=== PATIENT | male | born 1960 | race Caucasian/White ===

== ENCOUNTER 2017-09-04 11:21 | Inpatient (IN) | payer OTHER ==
[~2017-09-04] VITALS: Ht 180.3 cm; Wt 103.3 kg
[2017-09-04] VITALS (18 sets, daily range): BP systolic 140–202; BP diastolic 89–106; PULSE 70–98; RESP 16–19; TEMP 98.3–98.6; O2SAT 96–100
[2017-09-04] MEDS ORDERED: AMLO5 PO (11:42)
[2017-09-04] MEDS ORDERED: ASPI-516 CHEW (11:42)
[2017-09-04] MEDS ORDERED: CHOLESTEROL MED (11:42)
[2017-09-04] MEDS ORDERED: ASPIRIN 81 MG CHEW TAB CHEW ONE (12:00)
--- NOTE | 2017-09-04 12:06 | PD ---
HPI Chief Complaint: Chest Pain Time Seen by Provider: 11:49 Travel History International Travel<30 days: Yes Contact w/Intl Traveler<30days: Yes Name of Country Traveled to: [place] Traveled to known affect area: No History of Present Illness HPI 57-year-old male complains of chest pain. Patient states that the pain started about 5 days ago. Patient states that he has bilateral axilla aching pain with radiation to the back into the neck area. Patient denies any nausea vomiting diaphoresis. Patient denies palpitation. Patient denies diaphoresis. Patient denies history of CAD. Patient states that the pain occasionally worse with lying down or walking. Patient states that the pain has been intermittent for the past 5 days. Patient has history hypertension, hyperlipidemia. Patient denies history diabetes. Patient is a smoker. Patient has family history heart disease. Patient on aspirin 81 mg daily. Patient denies any chest pain now. PFSH Past Medical History High Cholesterol: Yes Hypertension: Yes Tetanus Vaccination: > 5 Years Influenza Vaccination: No Past Surgical History Other Surgery: Yes (NASAL TUMER REMOVED) Social History Alcohol Use: Yes (RARE) Tobacco Use: Yes (1/2 PPD) Substance Use: No Allergies-Medications (Allergen,Severity, Reaction): Coded Allergies: No Known Allergies (Unverified , 09/04/17) Reported Meds & Prescriptions Reported Meds & Active Scripts Active Reported [Cholesterol Med] Norvasc (Amlodipine Besylate) 5 Mg Tab 5 Mg PO DAILY Aspirin 81 Mg Chew 81 Mg CHEW DAILY Review of Systems General / Constitutional: No: Fever Eyes: No: Visual changes HENT: No: Headaches Cardiovascular: Positive: Chest Pain or Discomfort Respiratory: No: Shortness of Breath Gastrointestinal: No: Abdominal Pain Genitourinary: No: Dysuria Musculoskeletal: No: Pain Skin: No Rash Neurologic: No: Weakness Psychiatric: No: Depression Endocrine: No: Polydipsia Hematologic/Lymphatic: No: Easy Bruising Physical Exam Narrative GENERAL: Well-nourished, well-developed patient. SKIN: Focused skin assessment warm/dry. HEAD: Normocephalic. EYES: No scleral icterus. No injection or drainage. NECK: Supple, trachea midline. No JVD or lymphadenopathy. CARDIOVASCULAR: Regular rate and rhythm without murmurs, gallops, or rubs. RESPIRATORY: Breath sounds equal bilaterally. No accessory muscle use. GASTROINTESTINAL: Abdomen soft, non-tender, nondistended. MUSCULOSKELETAL: No cyanosis, or edema. BACK: Nontender without obvious deformity. No CVA tenderness. Neurologic exam normal. Data Data Last Documented VS Vital Signs Date Time Temp Pulse Resp B/P (MAP) Pulse Ox O2 Delivery O2 Flow Rate FiO2 09/04/17 12:56 93 16 201/106 (137) 100 Room Air 09/04/17 11:26 98.3 Orders Orders Electrocardiogram (09/04/17 11:58) Complete Blood Count With Diff (09/04/17 11:58) Comprehensive Metabolic Panel (09/04/17 11:58) Creatine Kinase (Cpk) (09/04/17 11:58) Troponin I (09/04/17 11:58) Prothrombin Time / Inr (Pt) (09/04/17 11:58) Act Partial Throm Time (Ptt) (09/04/17 11:58) Chest, Single Ap (09/04/17 11:58) Iv Access Insert/Monitor (09/04/17 11:58) Ecg Monitoring (09/04/17 11:58) Oximetry (09/04/17 11:58) Aspirin Chew (Aspirin Chew) (09/04/17 12:00) CKMB (09/04/17 12:05) CKMB% (09/04/17 12:05) Nitroglycerin 2% Oint (Nitroglycerin 2% (09/04/17 13:00) Heparin Inj (Heparin Inj) (09/04/17 13:00) Heparin-D5w 25,000 U/250 Ml (Heparin-D5w (09/04/17 13:00) Admit Order (Ed Use Only) (09/04/17 13:00) Consult Cardiology (09/04/17 ) Labs Laboratory Tests Test 09/04/17 12:05 White Blood Count 7.3 TH/MM3 Red Blood Count 4.95 MIL/MM3 Hemoglobin 15.5 GM/DL Hematocrit 45.8 % Mean Corpuscular Volume 92.6 FL Mean Corpuscular Hemoglobin 31.3 PG Mean Corpuscular Hemoglobin Concent 33.8 % Red Cell Distribution Width 12.1 % Platelet Count 148 TH/MM3 Mean Platelet Volume 8.8 FL Neutrophils (%) (Auto) 69.2 % Lymphocytes (%) (Auto) 18.4 % Monocytes (%) (Auto) 9.0 % Eosinophils (%) (Auto) 2.5 % Basophils (%) (Auto) 0.9 % Neutrophils # (Auto) 5.0 TH/MM3 Lymphocytes # (Auto) 1.3 TH/MM3 Monocytes # (Auto) 0.7 TH/MM3 Eosinophils # (Auto) 0.2 TH/MM3 Basophils # (Auto) 0.1 TH/MM3 CBC Comment DIFF FINAL Differential Comment Prothrombin Time 9.9 SEC Prothromb Time International Ratio 1.0 RATIO Activated Partial Thromboplast Time 25.2 SEC Blood Urea Nitrogen 12 MG/DL Creatinine 0.84 MG/DL Random Glucose 130 MG/DL Total Protein 7.7 GM/DL Albumin 4.0 GM/DL Calcium Level 8.6 MG/DL Aspartate Amino Transf (AST/SGOT) 61 U/L Alanine Aminotransferase (ALT/SGPT) 37 U/L Total Bilirubin 0.5 MG/DL Sodium Level 139 MEQ/L Potassium Level 3.8 MEQ/L Chloride Level 105 MEQ/L Carbon Dioxide Level 24.2 MEQ/L Anion Gap 10 MEQ/L Estimat Glomerular Filtration Rate 94 ML/MIN Total Creatine Kinase 491 U/L Creatine Kinase MB 44.2 NG/ML Creatine Kinase MB % 9.0 % Troponin I 2.50 NG/ML [facility] Medical Decision Making Medical Screen Exam Complete: Yes Emergency Medical Condition: Yes Interpretation(s) EKG shows sinus tachycardia at rate 114. T-wave inversion in V1 and V2. Otherwise nonspecific ST-T wave change. Last Impressions Chest X-Ray 09/04/17 1158 Signed Impressions: Service Date/Time: Monday, September 04, 2017 12:10 - CONCLUSION: No acute disease. Bilateral moderate a.c. joint degenerative change. Johana Mcmullen MD 12:56 PM. CBC within normal limit. CK-MB 9%. Troponin 2.5. Differential Diagnosis Differential diagnosis including musculoskeletal, angina, CT, PE, pneumothorax. Narrative Course 57-year-old male with bilateral axilla pain with radiation to back and to the neck. Aspirin 162 mg by mouth given now. Nitro paste 1 inch on chest wall. Heparin bolus and drip started. I spoke with production cost estimator on-call, Dr. Schneider. Agreed with the plan. Patient will be admitted to the [facility] at the [facility]. Diagnosis Primary Impression: NSTEMI (non-ST elevated myocardial infarction) Admitting Information Admitting Physician Requests: Admit Jaden Britton MD Sep 04, 2017 12:06
[2017-09-04 12:15] LABS: BASOPHIL # 0.1 TH/MM3 (0-0.2); BASOPHIL % 0.9 % (0.0-2.0); EOSINOPHIL # 0.2 TH/MM3 (0-0.4); EOSINOPHIL % 2.5 % (0.0-4.0); HEMATOCRIT 45.8 % (39.0-51.0); HEMOGLOBIN 15.5 GM/DL (13.0-17.0); LYMPH % 18.4 % (9.0-44.0); LYMPHOCYTE # 1.3 TH/MM3 (1.0-4.8); MEAN CELL VOLUME 92.6 FL (80.0-100.0); MEAN CORPUSCULAR HEMOGLOBIN 31.3 PG (27.0-34.0); MEAN CORPUSCULAR HGB CONC 33.8 % (32.0-36.0); MEAN PLATELET VOLUME 8.8 FL (7.0-11.0); MONOCYTE # 0.7 TH/MM3 (0-0.9); NEUT % 69.2 % (16.0-70.0); PLATELET COUNT 148 TH/MM3 (150-450); RED BLOOD COUNT 4.95 MIL/MM3 (4.50-5.90); RED CELL DISTRIBUTION WIDTH 12.1 % (11.6-17.2); WHITE BLOOD COUNT 7.3 TH/MM3 (4.0-11.0)
[2017-09-04 12:22] LABS: CHLORIDE 105 MEQ/L (98-107); SODIUM (NA) 139 MEQ/L (136-145)
[2017-09-04 12:25] LABS: CALCIUM 8.6 MG/DL (8.5-10.1)
[2017-09-04 12:26] LABS: BICARBONATE 24.2 MEQ/L (21.0-32.0); BLOOD UREA NITROGEN 12 MG/DL (7-18); GLUCOSE,RANDOM 130 MG/DL (74-106)
--- NOTE | 2017-09-04 12:26 | RADRPT ---
EXAM DATE/TIME: 09/04/2017 12:10 [place] COMPARISON: No previous studies available for comparison. INDICATIONS : Off and on pain thru out chest and bilateral shoulders , no known injury MEDICAL HISTORY : None. SURGICAL HISTORY : None. ENCOUNTER: Initial ACUITY: 4 - 6 days PAIN SCORE: 8/10 LOCATION: Bilateral chest FINDINGS: A single view of the chest demonstrates the lungs to be symmetrically aerated without evidence of mas s, infiltrate or effusion. The cardiomediastinal contours are unremarkable. Bilateral moderate degen erative change within the a.c. joints. CONCLUSION: No acute disease. Bilateral moderate a.c. joint degenerative change. Johana Mcmullen MD on September 04, 2017 at 12:22 Board Certified Radiologist. This report was verified electronically.
[2017-09-04 12:27] LABS: PROTHROMBIN TIME - PATIENT 9.9 SEC (9.8-11.6)
[2017-09-04 12:29] LABS: ALT (GPT) 37 U/L (12-78); AST (GOT) 61 U/L (15-37); CREATININE 0.84 MG/DL (0.60-1.30); GLOMERULAR FILTRATION RATE 94 ML/MIN (>89)
[2017-09-04 12:30] LABS: TOTAL BILIRUBIN ADULT 0.5 MG/DL (0.2-1.0); TOTAL PROTEIN 7.7 GM/DL (6.4-8.2)
[2017-09-04 12:32] LABS: ALKALINE PHOSPHATASE 73 U/L (45-117)
[2017-09-04] MEDS ORDERED: NITROGLYCERIN 2% OINT 1 GM PACKET TOPICAL ONE (13:00)
[2017-09-04] MEDS ORDERED: HEPARIN SODIUM - IV 10,000 UNITS/10 ML VIAL IV ONE (13:00)
[2017-09-04] MEDS: HEPARIN-D5W 25,000 U/250 ML 250 ML IV PRN (13:18)
--- NOTE | 2017-09-04 14:11 | HHI.HP ---
[facility]Staff Admission Diagnosis NSTEMI Diagnoses: Travel History International Travel<30 Days: Yes Contact w/Intl Traveler <30 Da: Yes Name of Country Traveled to: [place] Traveled to Known Affected Are: No History of Present Illness 57-year-old white male being admitted for an NSTEMI. Patient was in his usual state of health until about 5 days ago when he began experiencing a gradual onset of diffuse bilateral chest pain that was aching in nature. Pain was intermittent and did not respond to Tylenol nor Advil. Patient says that during the day the pain would, and self resolve but oddly enough at night when he would lay down and would come back stronger. Due to the persistence of his symptoms he decided come to the emergency department. Denies any nausea vomiting or lightheadedness fevers or chills. He thinks his left foot is showing very trace edema. Patient's past medical history is remarkable for hypertension which she takes amlodipine, says he takes a baby aspirin daily. Says he takes some sort of cholesterol medication but does not know the name of it. Social history is unremarkable for active smoking three quarters cigarette pack a day. Says he drinks very little. Family history is significant for CVA in father. In the emergency department the patient's troponin was elevated at 2.5. I independently reviewed EKG and see very mild ST segment depression in V4 V5 and V6 with flipped minimal T waves in V2. Patient says after he was given the nitroglycerin his chest pain resolved. He is noted to be very hypertensive in the emergency department with systolics over 190 and diastolics over 100. Review of Systems Except as stated in HPI: all other systems reviewed are Neg Past Family Social History Allergies: Coded Allergies: No Known Allergies (Unverified , 09/04/17) Physical Exam Vital Signs Vital Signs Date Time Temp Pulse Resp B/P (MAP) Pulse Ox O2 Delivery O2 Flow Rate FiO2 09/04/17 13:32 96 16 194/101 (132) 100 Room Air 09/04/17 12:56 93 16 201/106 (137) 100 Room Air 09/04/17 12:10 92 18 100 Room Air 09/04/17 11:37 122 97 Room Air 09/04/17 11:26 98.3 98 16 202/104 (136) 97 Physical Exam VS: afebrile GENERAL: SKIN: Warm and dry. EYES: No scleral icterus. No injection or drainage. ENT: No nasal bleeding or discharge. Mucous membranes pink and moist. CARDIOVASCULAR: Regular rate and rhythm. no murmurs RESPIRATORY: No accessory muscle use. Clear to auscultation. Breath sounds equal bilaterally. GASTROINTESTINAL: Abdomen soft, non-tender, nondistended. Hepatic and splenic margins not palpable. Extremities: No clubbing, cyanosis. No eleonora edema appreciated on either lower limb. MUSCULOSKELETAL: grossly intact ROM with 5/5 strength in upper and lower extremities proximally; adequate muscle bulk and tone for age and habitus NEUROLOGICAL: Awake and alert. No obvious cranial nerve deficits. No facial droop nor slurred speech noted. PSYCHIATRIC: Appropriate mood and affect; insight and judgment normal. Laboratory Laboratory Tests Test 09/04/17 12:05 White Blood Count 7.3 Red Blood Count 4.95 Hemoglobin 15.5 Hematocrit 45.8 Mean Corpuscular Volume 92.6 Mean Corpuscular Hemoglobin 31.3 Mean Corpuscular Hemoglobin Concent 33.8 Red Cell Distribution Width 12.1 Platelet Count 148 Mean Platelet Volume 8.8 Neutrophils (%) (Auto) 69.2 Lymphocytes (%) (Auto) 18.4 Monocytes (%) (Auto) 9.0 Eosinophils (%) (Auto) 2.5 Basophils (%) (Auto) 0.9 Neutrophils # (Auto) 5.0 Lymphocytes # (Auto) 1.3 Monocytes # (Auto) 0.7 Eosinophils # (Auto) 0.2 Basophils # (Auto) 0.1 CBC Comment DIFF FINAL Differential Comment Prothrombin Time 9.9 Prothromb Time International Ratio 1.0 Activated Partial Thromboplast Time 25.2 Blood Urea Nitrogen 12 Creatinine 0.84 Random Glucose 130 Total Protein 7.7 Albumin 4.0 Calcium Level 8.6 Aspartate Amino Transf (AST/SGOT) 61 Alanine Aminotransferase (ALT/SGPT) 37 Total Bilirubin 0.5 Sodium Level 139 Potassium Level 3.8 Chloride Level 105 Carbon Dioxide Level 24.2 Anion Gap 10 Estimat Glomerular Filtration Rate 94 Total Creatine Kinase 491 Creatine Kinase MB 44.2 Creatine Kinase MB % 9.0 Troponin I 2.50 Result Diagram: 09/04/17 1205 09/04/17 1205 Imaging Last Impressions Chest X-Ray 09/04/17 1158 Signed Impressions: Service Date/Time: Monday, September 04, 2017 12:10 - CONCLUSION: No acute disease. Bilateral moderate a.c. joint degenerative change. MD Beryl Myrick VTE Risk Assessment Beryl VTE Risk Assessment: Mod/High Risk (score >= 2) Caprini Risk Assessment Model Point Value = 1 Point Value = 2 Point Value = 3 Point Value = 5 Age 41-60 Minor surgery BMI > 25 kg/m2 Swollen legs Varicose veins or History of unexplained or recurrent spontaneous Oral contraceptives or hormone replacement Sepsis (< 1 month) Serious lung disease, including pneumonia (< 1 month) Abnormal pulmonary function Acute myocardial infarction Congestive heart failure (< 1 month) History of inflammatory bowel disease Medical patient at bed rest Age 61-74 Arthroscopic surgery Major open surgery (> 45 min) Laparoscopic surgery (> 45 min) Malignancy Confined to bed (> 72 hours) Immobilizing plaster cast Central venous access Age >= 75 History of VTE Family history of VTE Factor V Leiden Prothrombin [id number] Lupus anticoagulant Anticardiolipin antibodies Elevated serum homocysteine Heparin-induced thrombocytopenia Other congenital or acquired thrombophilia Stroke (< 1 month) Elective arthroplasty Hip, pelvis, or leg fracture Acute spinal cord injury (< 1 month) Prophylaxis Regimen Total Risk Factor Score Risk Level Prophylaxis Regimen 0-1 Low Early ambulation 2 Moderate Order ONE of the following: *Sequential Compression Device (SCD) *Heparin 5000 units SQ BID 3-4 Higher Order ONE of the following medications: *Heparin 5000 units SQ TID *Enoxaparin/Lovenox 40 mg SQ daily (WT < 150 kg, CrCl > 30 mL/min) *Enoxaparin/Lovenox 30 mg SQ daily (WT < 150 kg, CrCl > 10-29 mL/min) *Enoxaparin/Lovenox 30 mg SQ BID (WT < 150 kg, CrCl > 30 mL/min) AND/OR *Sequential Compression Device (SCD) 5 or more Highest Order ONE of the following medications: *Heparin 5000 units SQ TID (Preferred with Epidurals) *Enoxaparin/Lovenox 40 mg SQ daily (WT < 150 kg, CrCl > 30 mL/min) *Enoxaparin/Lovenox 30 mg SQ daily (WT < 150 kg, CrCl > 10-29 mL/min) *Enoxaparin/Lovenox 30 mg SQ BID (WT < 150 kg, CrCl > 30 mL/min) AND *Sequential Compression Device (SCD) Assessment and Plan Assessment and Plan Chest pain -Suspected an NSTEMI -Discussed with ER physician who discussed with cardiology, transferring patient to [facility], started on heparin drip, already given aspirin 162 mg. Hypertensive emergency - May be the cause or could be the result of a suspected myocardial infarction, per cardiology I will start a beta adi for now - Continue home Norvasc On heparin drip Physician Certification 2 Midnight Certification Type: Admission for Inpatient Services Order for Inpatient Services The services are ordered in accordance with Medicare regulations or non- Medicare payer requirements, as applicable. In the case of services not specified as inpatient-only, they are appropriately provided as inpatient services in accordance with the 2-midnight benchmark. Estimated LOS (days): 2 2 days is the estimated time the patient will need to remain in the hospital, assuming treatment plan goals are met and no additional complications. Post-Hospital Plan: Home Hiram Ernst MD Sep 04, 2017 14:11
[2017-09-04] MEDS: METOPROLOL TARTRATE 25 MG TAB PO SCH ×2 (14:14→20:33)
[2017-09-04] MEDS: amLODIPine BESYLATE 5 MG TAB PO SCH (14:15)
[2017-09-04] MEDS ORDERED: LORazepam 0.5 MG TAB PO ONE (15:00)
--- NOTE | 2017-09-04 16:39 | EKG ---
Date Performed: 09/04/2017 Time Performed: 11:37:18 PTAGE: 57 years EKG: SINUS TACHYCARDIA POSSIBLE LEFT ATRIAL ENLARGEMENT POSSIBLE RIGHT VENTRICULAR CONDUCTION DE LAY LEFT VENTRICULAR HYPERTROPHY AND ST-T CHANGE ABNORMAL ECG NO PREVIOUS TRACING DOCTOR: Gaurang Golden Interpretating Date/Time 09/04/2017 16:38:51
[2017-09-04] MEDS ORDERED: ACETAMINOPHEN 325 MG TAB PO PRN (20:00)
[2017-09-04] MEDS ORDERED: ONDANSETRON HCL 4 MG/2 ML VIAL IV PUSH PRN (20:00)
[2017-09-04] MEDS: MORPHINE SULFATE 2 MG/ML INJ IV PUSH PRN (20:32)
[2017-09-04] MEDS: PRAVASTATIN SOD 40 MG TAB PO SCH (20:33)
[2017-09-04] MEDS: hydrALAZINE HCL 20 MG/ML VIAL IV PUSH PRN (22:30)
[2017-09-05] VITALS (24 sets, daily range): BP systolic 135–162; BP diastolic 68–101; PULSE 72–104; RESP 16–20; TEMP 98–99.2; O2SAT 94–98
[2017-09-05] MEDS ORDERED: NITROGLYCERIN 2% OINT 1 GM PACKET TOPICAL SCH
[2017-09-05] MEDS: MORPHINE SULFATE 2 MG/ML INJ IV PUSH PRN ×3 (02:48→21:36)
[2017-09-05] MEDS: hydrALAZINE HCL 20 MG/ML VIAL IV PUSH PRN (04:22)
[2017-09-05] MEDS: NITROGLYCERIN-D5W 50 MG/250 ML 250 ML IV PRN (04:55)
[2017-09-05] MEDS ORDERED: LORazepam 2 MG/ML VIAL IV PUSH ONE (05:00)
[2017-09-05 05:11] LABS: AUTOMATED NEUTROPHIL # 9.2 TH/MM3 (1.8-7.7); BASOPHIL % 0.3 % (0.0-2.0); EOSINOPHIL # 0.2 TH/MM3 (0-0.4); EOSINOPHIL % 1.2 % (0.0-4.0); HEMATOCRIT 43.8 % (39.0-51.0); HEMOGLOBIN 15.5 GM/DL (13.0-17.0); LYMPH % 16.8 % (9.0-44.0); LYMPHOCYTE # 2.2 TH/MM3 (1.0-4.8); MEAN CELL VOLUME 93.4 FL (80.0-100.0); MEAN CORPUSCULAR HGB CONC 35.3 % (32.0-36.0); MEAN PLATELET VOLUME 9.2 FL (7.0-11.0); MONO % 9.6 % (0.0-8.0); MONOCYTE # 1.2 TH/MM3 (0-0.9); NEUT % 72.1 % (16.0-70.0); PLATELET COUNT 140 TH/MM3 (150-450); RED BLOOD COUNT 4.69 MIL/MM3 (4.50-5.90); RED CELL DISTRIBUTION WIDTH 12.7 % (11.6-17.2); WHITE BLOOD COUNT 12.8 TH/MM3 (4.0-11.0)
[2017-09-05 05:39] LABS: ALBUMIN 3.7 GM/DL (3.4-5.0); AST (GOT) 77 U/L (15-37); BICARBONATE 24.6 MEQ/L (21.0-32.0); BLOOD UREA NITROGEN 10 MG/DL (7-18); CALCIUM 8.9 MG/DL (8.5-10.1); CHLORIDE 104 MEQ/L (98-107); CREATININE 0.82 MG/DL (0.60-1.30); GLOMERULAR FILTRATION RATE 96 ML/MIN (>89); GLUCOSE,RANDOM 125 MG/DL (74-106); SODIUM (NA) 138 MEQ/L (136-145)
[2017-09-05 05:41] LABS: ALT (GPT) 37 U/L (12-78)
[2017-09-05 05:44] LABS: ALKALINE PHOSPHATASE 76 U/L (45-117); TOTAL BILIRUBIN ADULT 0.7 MG/DL (0.2-1.0); TOTAL PROTEIN 7.4 GM/DL (6.4-8.2)
[2017-09-05] MEDS: METOPROLOL TARTRATE 25 MG TAB PO SCH ×3 (06:40→21:17)
--- NOTE | 2017-09-05 08:44 | HHI.PR ---
Subjective Remarks f/u; NSTEMI in no acute distress. had some chest pain earlier which has resolved. Objective Vitals Vital Signs Date Time Temp Pulse Resp B/P (MAP) Pulse Ox O2 Delivery O2 Flow Rate FiO2 09/05/17 07:55 99.2 91 18 141/82 (101) 98 09/05/17 05:29 18 09/05/17 05:28 18 09/05/17 05:01 92 142/97 09/05/17 04:55 102 157/101 09/05/17 04:29 101 18 156/95 (115) 97 09/04/17 21:25 89 18 155/103 (120) 97 163/104 (123) 09/04/17 20:00 98.6 84 18 173/105 (127) 98 163/106 (125) 09/04/17 18:00 76 09/04/17 17:00 76 09/04/17 16:04 98.6 86 19 166/104 (124) 96 09/04/17 15:14 99 18 182/102 (128) 100 09/04/17 15:04 Room Air 09/04/17 14:12 180/98 (125) 09/04/17 13:32 96 16 194/101 (132) 100 Room Air 09/04/17 12:56 93 16 201/106 (137) 100 Room Air 09/04/17 12:10 92 18 100 Room Air 09/04/17 11:37 122 97 Room Air 09/04/17 11:26 98.3 98 16 202/104 (136) 97 I/O 09/04/17 09/04/17 09/04/17 09/05/17 09/05/17 09/05/17 07:00 15:00 23:00 07:00 15:00 23:00 Intake Total 240 ml Output Total 750 ml Balance 240 ml -750 ml Intake Oral 240 ml Output Urine Total 750 ml Result Diagram: 09/05/17 0450 09/05/17 0450 Imaging Last Impressions Chest X-Ray 09/04/17 1158 Signed Impressions: Service Date/Time: Monday, September 04, 2017 12:10 - CONCLUSION: No acute disease. Bilateral moderate a.c. joint degenerative change. Johana Mcmullen MD Objective Remarks GENERAL: This is a well-nourished, well-developed patient, in no apparent distress. CARDIOVASCULAR: Regular rate and regular rhythm without murmurs, gallops, or rubs. RESPIRATORY: Clear to auscultation. Breath sounds equal bilaterally. No wheezes , rales, or rhonchi. GASTROINTESTINAL: Abdomen soft, non-tender, nondistended. Normal, active bowel sounds MUSCULOSKELETAL: Extremities without clubbing, cyanosis, or edema. NEURO: Alert & Oriented x4 to person, place, time, situation. Moves all ext x4 Medications and IVs Inpatient Medications Acetaminophen (Tylenol) 650 mg Q4H PRN PO temp > 101 or MARTINEZ; Start 09/04/17 at 20:00 Amlodipine Besylate (Norvasc) 5 mg DAILY PO ; Start 09/04/17 at 14:15 Aspirin (Aspirin Chew) 162 mg ONCE ONCE CHEW Last administered on 09/04/17at 12 :14; Start 09/04/17 at 12:00; Stop 09/04/17 at 12:03; Status DC Heparin Sodium (Porcine) (Heparin Inj) 4,000 units ONCE ONCE IV Last administered on 09/04/17at 13:03; Start 09/04/17 at 13:00; Stop 09/04/17 at 13:02 ; Status DC Heparin Sodium/ Dextrose 250 ml @ 10 mls/hr TITRATE PRN IV Coagulation Management Last administered on 09/04/17at 13:18; Start 09/04/17 at 13:00 Hydralazine HCl (Apresoline Inj) 10 mg Q6H PRN IV PUSH SEE LABEL COMMENTS Last administered on 09/05/17at 04:22; Start 09/04/17 at 22:15 Lorazepam (Ativan Inj) 0.5 mg ONCE ONCE IV PUSH Last administered on at 04:56; Start 09/05/17 at 05:00; Stop 09/05/17 at 05:01; Status DC Lorazepam (Ativan) 0.5 mg ONCE ONCE PO Last administered on 09/04/17at 14:54; Start 09/04/17 at 15:00; Stop 09/04/17 at 15:01; Status DC Metoprolol Tartrate (Lopressor) 12.5 mg Q8HR PO Last administered on 09/05/17at 06:40; Start 09/04/17 at 14:00 Morphine Sulfate (Morphine Inj) 2 mg Q3HR PRN IV PUSH pain > 4 Last administered on 09/05/17at 04:24; Start 09/04/17 at 20:00 Nitroglycerin (Nitroglycerin 2% Oint) 1 inch Q6HR TOPICAL Last administered on 09/04/17at 22:30; Start 09/05/17 at 00:00; Stop 09/05/17 at 04:39; Status DC Nitroglycerin/ Dextrose 250 ml @ 1.5 mls/hr TITRATE PRN IV Chest pain relief Last administered on 09/05/17at 04:55; Start 09/05/17 at 04:45 Ondansetron HCl (Zofran Inj) 4 mg Q6H PRN IV PUSH NAUSEA OR VOMITING Last administered on 09/04/17at 23:35; Start 09/04/17 at 20:00 Pravastatin Sodium (Pravachol) 40 mg HS PO Last administered on 09/04/17at 20:33 ; Start 09/04/17 at 21:00 A/P Assessment and Plan A/P -NSTEMI -on Heparin and Nitro drip -continue metoprolol -check lipid panel. -cardiology consulted. Hypertensive emergency - continue metoprolol - Continue home Norvasc On heparin drip Discharge Planning awaiting cardiology consult. Sid Robles MD Sep 05, 2017 08:44
--- NOTE | 2017-09-05 08:50 | MB ---
cc: RUPERTO RHODES HANSCY M.D. DATE OF CONSULTATION: 09/05/2017 REASON FOR CONSULTATION [id number] HI, unstable angina. HISTORY OF PRESENT ILLNESS Mr. Berrios is a 57-year-old gentleman with history of high blood pressure, hyperlipidemia, drinks occasionally, used to smoke half-a-pack of cigarettes a day, stopped smoking a long time ago, admitted to the emergency room due to chest pain. He refers the pain radiates to his back. He came to the ER and he was admitted. Subsequently, he was transferred to this center. The chart was reviewed. The patient was evaluated. ALLERGIES None. SOCIAL HISTORY As mentioned before used to smoke a pack of cigarettes a day, stopped a long time ago. FAMILY HISTORY Noncontributory to his current medical condition. MEDICATIONS At home the patient was taking aspirin only and Norvasc 5 mg a day. Currently is on: 1. IV nitro. 2. IV Heparin. 3. Metoprolol p.o. 4. Pravachol. REVIEW OF SYSTEMS Refers no chest pain, some tightness during the night. No vomiting. No fever. PHYSICAL EXAMINATION GENERAL: Alert, fully oriented. VITAL SIGNS: Blood pressure currently 141/82, pulse 91, respiratory rate 18. LUNGS: Ventilated. CARDIOVASCULAR: S1-S2, regular. No gallop. ABDOMEN: Soft. No mass. EXTREMITIES: No edema. ELECTROCARDIOGRAM Sinus rhythm, diffuse ST changes. LABORATORY DATA Hemoglobin 15.5, white blood cell 12.8, potassium 3.7, creatinine 0.82, troponin 3.8. CK 7.4, INR 1.1. ASSESSMENT AND RECOMMENDATIONS Mr. Berrios has unstable angina. He has a [id number] HI. During the night Nitro had to be initiated. He is comfortable at this point. He had diffuse ST changes. Troponin is high. He has multiple risk factors. The gentleman will need a left heart catheterization. The risks, the nature and the benefit of the procedure are clearly stated to him. The risks include pneumothorax, cardiac perforation, stroke and even . He understood and agreed to proceed. Dr. Rhodes consulted for the procedure. Alon Schneider MD HS/TLL /8:28 AM /8:33 AM
[2017-09-05] MEDS: amLODIPine BESYLATE 5 MG TAB PO SCH (09:08)
--- NOTE | 2017-09-05 11:56 | EKG ---
Date Performed: 09/05/2017 Time Performed: 04:28:36 PTAGE: 57 years EKG: Sinus tachycardia Leftward axis LVH with secondary repolarization abnormality Extensive ST- T changes may be due to hypertrophy and/or ischemia Compared to previous tracing T wave inversion in the anterolateral leads is more prominent Abnormal ECG PREVIOUS TRACING : 09/04/2017 11.37 DOCTOR: Reno Hussein Interpretating Date/Time 09/05/2017 11:56:18
[2017-09-05] MEDS ORDERED: VERAPAMIL HCL 5 MG/2 ML VIAL ONE (12:41)
[2017-09-05] MEDS ORDERED: NITROGLYCERIN INJ 5 ML ONE (12:42)
[2017-09-05] MEDS ORDERED: HEPARIN SODIUM - IV 10,000 UNITS/10 ML VIAL ONE (12:42)
[2017-09-05] MEDS ORDERED: MIDAZOLAM HCL 2 MG/2 ML VIAL ONE (13:06)
--- NOTE | 2017-09-05 13:54 | CATHPROC ---
[facility] HIS Report Study Information Study Number Admission Scheduled Start Study Start [id number] Sep 04 2017 1:02PM 09/05/2017 Sep 05 2017 12:47PM [place] Service Cardiac Catheterization Admit Source Facility Department Emergency department [facility] [place] Manager Physician and Clinical Staff Initial [facility] Specialist Matt MALIN, [place] [facility] Safety SpecialistJada Wise RN Recorder Lanie Gonzalez RCIS TECH2 Recorder Josiah Ceja RCIS(BS) Scrub Reina Meehan,(R) Scrub Ana Luisa Rojo ,RT(R) Procedures Performed Procedure Location (Site) Vessel Name Coronary Angiograms LCA Left Coronary Coronary Angiograms RCA Right Coronary L Heart Cath Equipment Time Riveter [employer] Brakes Description Size Mfg Part Number Used/Scraped TRANSDUCER, TRUWAVE [id number] 12:53 ZHANG JACOBS * Used W/NEOCOCK *[id number] *[id number] 12:53 saperatec PACK, CCL CUSTOM * Used *[id number] 12:53 saperatec SUPPORT, ARTERIAL ADULT 37507 *[id number] Used [id number] 13:07 MEDTRONIC JR 4.0 DXTERITY CATHETER FR 5 Used *[id number] BAND, RADIAL COMPRESSION TR [id number] 13:32 [employer] MEDICAL 29CM Used LARGE 29 *[id number] 12:53 [employer] MEDICAL WIRE, EXCHANGE 260CM 3MMJ 260CM Used *[id number] 12:53 NAMIC MANIFOLD, 4 PORT * Used *[id number] 12:53 NYCOMED OMNIPAQUE, 350 MG, 150ML 150ML [id number] Used [id number] 12:53 [employer]OVETT MED[employer] BLANKET,WARM AIR CCL * Used *[id number] 13:22 TERUMO MEDICAL SHEATH, FR6 TERUMO (10CM) FR 6 Used *[id number] SHEATH, FR6 TRANSRADIAL [id number] 12:53 TERUMO MEDICAL FR 6 Used SLENDER 10CM *[id number] Equipment Model, Serial, Lot Number and Expiration Data Description Model Number Serial Number Lot Number Expiration Date JR 4.0 DXTERITY CATHETER [id number] 04-20-2020 History: Allergies Allergy Reaction No Known Allergies History: Risk Factors Family History of Hypertension Dyslipidemia Previous HI Previous Heart Failure Premature CAD Yes Yes Yes No No Prior Valve Prior PCI Prior CABG Surgery No No No Cerebrovascular Peripheral Artery Chronic Lung On Dialysis Diabetes Disease Disease Disease No No No No No History: Stress Tests Stress or Imaging Studies Performed No History: Other Current Smoker Method Quit Packs a Day Years Used Pack Years No Cigarettes 10 Years Ago 1 20 20 Labs Hgb (g/dl) Hct (%) WBC (l/cumm) Platelets (thousands) 11.60-17.00 35.00-51.00 4.00-11.00 150.00-450.00 15.5 43.8 12.8 140 Glucose (mg/dl) BUN (mg/dl) Creatinine (mg/dl) BUN:Creatinine (1:x) 74.00-106.00 7.00-18.00 0.50-1.30 10.00-20.00 125 10 0.8 12.5 Na (meq/l) K (meq/l) 136.00-145.00 3.50-5.10 138 3.7 INR (PTT:PT) 0.90-1.10 1 Troponin I (ng/ml) CPK (u/l) CPK-MB (ng/ML) 0.02-0.05 26.00-308.00 0.50-3.60 3.8 463 34.2 Medication Medication Total Dose (Bolus/Oral) Medication Total Dosage/Unit 1% XYLOCAINE 3 mL FENTANYL 25 mcg RADIAL COCKTAIL 5 mL (Bolus) VERSED 0.5 mg Medications (Bolus/Oral) Medication Time Given Dosage/Unit Administered By Reason VERSED 09/05/2017 1:11:54 PM 0.5 mg Jada Bower 0.5 mg VERSED given in lab by Jada Bower, RN in Left Antecubital via Peripheral IV. Ordered by Gaurang Edmondson FENTANYL 09/05/2017 1:12:03 PM 25 mcg Jada Bower 25 mcg FENTANYL given in lab by Jada Bower, KIMO in Left Antecubital via Peripheral IV. Ordered by Gaurang Golden 1% XYLOCAINE 09/05/2017 1:12:07 PM 3 mL Gaurang Golden 3 mL 1% XYLOCAINE given in lab by Gaurang Golden in Right Radial via Subcutaneous. Ntg 200mcg Verapamil 2.5mg Heparin RADIAL COCKTAIL 09/05/2017 1:13:09 PM 5 mL (Bolus) Gaurang Golden 3000U 5 mL (Bolus) RADIAL COCKTAIL given in lab by Gaurang Golden via Radial. Using [Solution Name]. Salena wilderon: Ntg 200mcg Verapamil 2.5mg Heparin 4000U. Medication (Drip) Medication Time Given Dosage/Unit Concentration/Unit Diluent (ml) Solutio n IV Solutions 09/05/2017 12:51:13 PM 0 mL (IV) 500 NaCl .9 Patient arrived on IV Solutions in Left Antecubital via Peripheral IV. Pump/Drip Flow = 20 ml/hr usin g NaCl .9. NITROGLYCERIN DRIP 09/05/2017 12:50:32 PM 30 mcg/min 50 mg 250 D5W Patient arrived on 30 mcg/min NITROGLYCERIN DRIP in Left Antecubital via Peripheral IV. Pump/Drip Luis w = 9 ml/hr using D5W with a concentration of 50 mg in 250 ml. Initial Case Assessment Cardiovascular HR Rhythm NIBP Chest Pain 95 sr 156/91 0 Circulatory - Right Pulses Dorsalis Pedis Femoral Radial 3 3 3 Scale (0,1,2,3,4,d) Circulatory - Left Pulses Dorsalis Pedis Femoral Radial 3 3 Scale (0,1,2,3,4,d) Neurological State Oriented to time-place- Alert Moves all extremities person Respiration - General Respiration Rate SpO2 (%) (B/min) 20 95 Final Case Assessment Cardiovascular HR Rhythm NIBP Chest Pain 95 sr 150/85 0 Circulatory - Right Pulses Dorsalis Pedis Femoral Radial 3 3 3 Scale (0,1,2,3,4,d) Circulatory - Left Pulses Dorsalis Pedis Femoral Radial 3 3 Scale (0,1,2,3,4,d) Neurological State Oriented to time-place- Alert Moves all extremities person Respiration - General Respiration Rate SpO2 (%) (B/min) 20 95 Chronological Log Time Study Chronological Log 12:45:40 Patient arrived via Bed. Heparin DCed per MD upon chicken picker. 12:45:41 Patient Name, D.O.B, / Armband Verified By R.N. Vitals capture started with the following parameters, Patient=Adult, Interval=5 min, Initial Pr kuutcc=039 mmHg, 12:49:21 Deflation Rate=5 mmHg, Cuff placed on Left Arm 12:49:56 SRYX=031/89 mmhg, SpO2=93.0 % 12:50:15 Consent signed by the physician and the patient and verified by the [place] Manager staff. 12:50:16 Pre-op and post- op instructions given; patient acknowledges understanding of instructions. 12:50:18 Verbal Stimulation=2 Physical Stimulation=2 Airway=2 Respiration=2 TOTAL=8. (0=absent, 1=li mited, 2=present) 12:50:22 Presedation assessment performed by [place] Manager RN. 12:50:24 Patient has been NPO for More than 6Hrs. 12:50:25 Skin Breakdown-none 12:50:28 Ping Prominences Protected 12:50:31 A # 20 IV was noted in the Antecubital (left). Grade = patent Patient arrived on 30 mcg/min NITROGLYCERIN DRIP in Left Antecubital via Peripheral IV. Pump/Dr ip Flow = 9 ml/hr 12:50:32 using D5W with a concentration of 50 mg in 250 ml. 12:50:33 History and physical on the chart or being dictated. 12:51:13 Patient arrived on IV Solutions in Left Antecubital via Peripheral IV. Pump/Drip Flow = 20 ml/hr using NaCl .9. 12:51:37 A # 20 IV was noted in the Antecubital (right). Grade = patent 12:52:05 Allens test performed on the right radial and ulnar artery. 12:55:26 HR=99 bpm, FZTK=149/91 mmhg, SpO2=91.0 %, Resp=15 B/min Assessment: Initial Case, HR=95 BPM, Rhythm=sr, SJRQ=570/91 mmhg, Chest Pain=0 Right Pulses: Aydin Ped=3, Femoral=3, Radial=3 12:55:43 Left Pulses: Aydin Ped=3, Femoral=3 Neurological: State=Alert, Ox3, [place] Respiration: Resp=20 B/min, SpO2=95 % 12:55:58 Bilateral groins and right radial prepped with 2% chlorhexidine, and draped after a 3 minut e waiting time. 12:58:33 Reference ECG taken 12:59:58 HR=93 bpm, FTGL=558/87 mmhg, SpO2=92.0 %, Resp=21 B/min 13:03:49 Pressure channel 1 zeroed. 13:04:29 MD paged 13:04:57 HR=92 bpm, OGPA=270/92 mmhg, SpO2=96 %, Resp=15 B/min, Pain=0, Nita=10, Gray=2 13:06:14 MD arrived. 13:06:31 Contrast Scanned 13:09:57 HR=90 bpm, DWDC=632/92 mmhg, SpO2=95 %, Resp=16 B/min, Pain=0, Nita=10, Gray=2 Time Out. Correct patient, correct procedure, correct physician, power injector not loaded with contrast with surgical 13:11:17 team present. Time Out Concurred by MD and individual staff in procedure. 13:11:53 Case Start 0.5 mg VERSED given in lab by Jada Bower, KIMO in Left Antecubital via Peripheral IV. Ordere d by Gaurang Golden 13:11:54 G. 25 mcg FENTANYL given in lab by Jada Bower, KIMO in Left Antecubital via Peripheral IV. Orde red by [place] 13:12:03 Gaurang Paige. 13:12:07 3 mL 1% XYLOCAINE given in lab by Gaurang Golden in Right Radial via Subcutaneous. 13:12:37 Access site was Right Radial Artery. A SHEATH, FR6 TRANSRADIAL SLENDER 10CM FR 6 was advanced into the Radial (right) using the Perc utaneous 13:12:44 technique. 5 mL (Bolus) RADIAL COCKTAIL given in lab by Gaurang Golden via Radial. Using [Solution Na me]. Reason: Ntg 13:13:09 200mcg Verapamil 2.5mg Heparin 4000U. A JR 4.0 DXTERITY CATHETER FR 5 was advanced over a wire. OMNIPAQUE, 350 MG, 150ML 150ML was us ed for 13:13:47 injections. 13:14:58 WZ=377 bpm, GKXZ=407/83 mmhg, SpO2=91.0 %, Resp=14 B/min, Pain=0, Nita=10, Gray=2 Recorded Pressure: LV, HR=95, Condition=Condition 1 13:16:05 (Left Ventricle) LV 135/9/15 Recorded Pressure: LV, Ao, HR=96, Condition=Condition 1 13:17:23 (Left Ventricle) LV 135/12/19, (Aorta) Ao 127/85/106 Recorded Pressure: Ao, HR=96, Condition=Condition 1 13:17:39 (Aorta) Ao 125/85/104 13:18:29 The RCA was injected and visualized at various angles. OMNIPAQUE, 350 MG, 150ML 150ML used . 13:19:53 OR=580 bpm, ZQZR=351/91 mmhg, SpO2=93 %, Resp=20 B/min, Pain=0, Nita=10, Gray=2 After removing the current catheter a JL 3.5 INFINITI CATHETER FR 5 was advanced over a WIRE, E XCHANGE 260CM 13:20:10 3MMJ 260CM. 13:24:56 HR=95 bpm, SORE=751/88 mmhg, SpO2=90.0 %, Resp=17 B/min, Pain=0, Nita=10, Gray=2 13:26:01 The LCA was injected and visualized at various angles. OMNIPAQUE, 350 MG, 150ML 150ML used . 13:29:59 HR=96 bpm, RQMA=701/85 mmhg, SpO2=92.0 %, Resp=16 B/min, Pain=0, Nita=10, Gray=2 13:32:52 Catheter was removed 13:33:14 Case End Assessment: Final Case, HR=95 BPM, Rhythm=sr, FORL=921/85 mmhg, Chest Pain=0 Right Pulses: Aydin Ped=3, Femoral=3, Radial=3 13:33:19 Left Pulses: Aydin Ped=3, Femoral=3 Neurological: State=Alert, Ox[place], [place] Respiration: Resp=20 B/min, SpO2=95 % 13:33:29 Catheter(s) removed without difficulty Radial Compression Device Used. 13 mLs of air placed in BAND, RADIAL COMPRESSION TR LARGE 29 29 CM. Affected 13:33:30 hand 95 % O2 saturation. 13:33:41 Sterile dressing applied to site 13:33:41 No case complications noted. 13:33:42 Cine recording checked. 13:33:43 Bedside Report will be given. 13:33:44 Contrast Scanned 13:33:46 Verbal Stimulation=2 Physical Stimulation=2 Airway=2 Respiration=2 TOTAL=8. (0=absent, 1=li mited, 2=present) 13:33:57 A Left Heart Cath was performed. 13:35:22 HR=98 bpm, EAGP=320/98 mmhg, SpO2=92.0 %, Resp=20 B/min, Pain=0, Nita=10, Gray=2 13:39:59 HR=92 bpm, MTEQ=019/96 mmhg, SpO2=92.0 %, Resp=12 B/min, Pain=0, Nita=10, Gray=2 13:44:30 Vitals capture stopped. 13:44:32 Patient moved to [facility] End Study - Contrast Media Used In Study Contrast Total Opened (mL) Total Used (mL) Total Wasted (mL) Omnipaque 50 50 0 End Study - Maximum Contrast Load Max Contrast Load (mL) 637.5 End Study - Radiation Exposure Fluoro Time (minutes) 2.7 End Study - Patient Disposition Complications Transferred To Interventional Outcome No Telemetry Bed No attempt made
--- NOTE | 2017-09-05 14:18 | PD.CONS ---
History of Present Illness Service CT Surgery Consult Requested By Dr. Golden Reason for Consult NSTEMI, CAD Primary Care Physician Non-Staff Diagnoses: (1) CAD (coronary artery disease) (2) NSTEMI (non-ST elevated myocardial infarction) History of Present Illness 57y/o male presents with 1 day h/o chest pain at rest not relieved by NSAIDS or tylenol. He also c/o diaphoresis, but denies nausea or palpitations. Denies prior cardiac history. Ruled in for NSTEMI. LHC shows complex 2 vessel CAD. He Is being considered for CABG. Review of Systems Constitutional: COMPLAINS OF: Diaphoretic episodes, Fatigue, DENIES: Fever, Weight gain, Weight loss, Chills, Dizziness, Change in appetite, Night Sweats Endocrine: DENIES: Heat/cold intolerance, Polydipsia, Polyuria, Polyphagia Eyes: DENIES: Blurred vision, Diplopia, Eye inflammation, Eye pain, Vision loss , Photosensitivity, Double Vision Ears, nose, mouth, throat: DENIES: Tinnitus, Hearing loss, Vertigo, Nasal discharge, Oral lesions, Throat pain, Hoarseness, Ear Pain, Running Nose, Epistaxis, Sinus Pain, Toothache, Odynophagia Respiratory: DENIES: Apneas, Cough, Snoring, Wheezing, Hemoptysis, Sputum production, Shortness of breath Cardiovascular: COMPLAINS OF: Chest pain, DENIES: Palpitations, Syncope, Dyspnea on Exertion, PND, Lower Extremity Edema, Orthopnea, Claudication Gastrointestinal: DENIES: Abdominal pain, Black stools, Bloody stools, Constipation, Diarrhea, Nausea, Vomiting, Difficulty Swallowing, Anorexia Genitourinary: DENIES: Sexual dysfunction, Urinary frequency, Urinary incontinence, Urgency, Hematuria, Dysuria, Nocturia, Penile Discharge, Testicular Pain, Testicular Swelling Musculoskeletal: DENIES: Joint pain, Muscle aches, Stiffness, Joint Swelling, Back pain, Neck pain Integumentary: DENIES: Abnormal pigmentation, Nail changes, Pruritus, Rash Hematologic/lymphatic: COMPLAINS OF: Bruising, Lymphadenopathy Immunologic/allergic: DENIES: Eczema, Urticaria Neurologic: DENIES: Abnormal gait, Headache, Localized weakness, Paresthesias, Seizures, Speech Problems, Tremor, Poor Balance Psychiatric: DENIES: Anxiety, Confusion, Mood changes, Depression, Hallucinations, Agitation, Suicidal Ideation, Homicidal Ideation, Delusions Past Family Social History Allergies: Coded Allergies: No Known Allergies (Unverified , 09/04/17) Past Medical History HTN hyperlipidemia Reported Medications ASA Amlodipine Unknown cholesterol med Active Ordered Medications Current Medications Medications (Trade) Dose Ordered Sig/Dejon Route Start Time Stop Time Status Last Admin Heparin Sodium/ Dextrose 250 ml @ 10 mls/hr TITRATE PRN IV 09/04/17 13:00 09/04/17 13:18 (Lopressor) 12.5 mg Q8HR PO 09/04/17 14:00 09/05/17 06:40 (Norvasc) 5 mg DAILY PO 09/04/17 14:15 09/05/17 09:08 (Morphine Inj) 2 mg Q3HR PRN IV PUSH 09/04/17 20:00 09/05/17 04:24 (Pravachol) 40 mg HS PO 09/04/17 21:00 09/04/17 20:33 (Tylenol) 650 mg Q4H PRN PO 09/04/17 20:00 (Zofran Inj) 4 mg Q6H PRN IV PUSH 09/04/17 20:00 09/04/17 23:35 (Apresoline Inj) 10 mg Q6H PRN IV PUSH 09/04/17 22:15 09/05/17 04:22 Nitroglycerin/ Dextrose 250 ml @ 1.5 mls/hr TITRATE PRN IV 09/05/17 04:45 09/05/17 04:55 Family History Stroke Social History Smokes 1 ppd 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 [facility] Physical Exam Vital Signs Vital Signs Date Time Temp Pulse Resp B/P (MAP) Pulse Ox O2 Delivery O2 Flow Rate FiO2 09/05/17 11:00 98.6 88 16 136/68 (90) 98 09/05/17 09:18 83 136/86 09/05/17 09:10 85 140/89 (106) 09/05/17 09:01 84 09/05/17 07:55 99.2 91 18 141/82 (101) 98 09/05/17 07:16 89 09/05/17 05:30 145/86 (105) 09/05/17 05:29 18 09/05/17 05:28 18 09/05/17 05:01 92 142/97 09/05/17 04:55 102 157/101 09/05/17 04:32 99 18 162/94 (116) 98 09/05/17 04:29 101 18 156/95 (115) 97 09/05/17 04:29 104 18 156/95 (115) 95 09/05/17 04:16 101 18 161/101 (121) 98 09/05/17 04:00 93 09/05/17 04:00 95 09/05/17 02:40 143/88 (106) 09/05/17 01:00 74 09/05/17 00:00 74 09/05/17 00:00 72 09/04/17 23:27 140/90 (107) 09/04/17 23:00 74 09/04/17 22:33 140/89 (106) 09/04/17 22:00 70 09/04/17 21:25 89 18 155/103 (120) 97 163/104 (123) 09/04/17 21:22 87 16 155/103 (120) 98 09/04/17 21:00 80 09/04/17 20:19 89 09/04/17 20:00 98.6 84 18 173/105 (127) 98 163/106 (125) 09/04/17 20:00 98.6 84 16 173/105 (127) 98 163/106 (125) 09/04/17 20:00 76 09/04/17 18:00 76 09/04/17 17:00 76 09/04/17 16:04 98.6 86 19 166/104 (124) 96 09/04/17 15:14 99 18 182/102 (128) 100 09/04/17 15:04 Room Air 09/04/17 14:12 180/98 (125) Physical Exam GENERAL: This is a well-nourished, well-developed patient, in no apparent distress. SKIN: No rashes, ecchymoses or lesions. Cool and dry. HEAD: Atraumatic. Normocephalic. No temporal or scalp tenderness. EYES: Pupils equal round and reactive. Extraocular motions intact. No scleral icterus. No injection or drainage. ENT: Nose without bleeding, purulent drainage or septal hematoma. Throat without erythema, tonsillar hypertrophy or exudate. Uvula midline. Airway patent. NECK: Trachea midline. No JVD or lymphadenopathy. Supple, nontender, no meningeal signs. CARDIOVASCULAR: Regular rate and rhythm without murmurs, gallops, or rubs. RESPIRATORY: Clear to auscultation. Breath sounds equal bilaterally. No wheezes , rales, or rhonchi. GASTROINTESTINAL: Abdomen soft, non-tender, nondistended. No hepato-splenomegaly , or palpable masses. No guarding. MUSCULOSKELETAL: Extremities without clubbing, cyanosis, or edema. No joint tenderness, effusion, or edema noted. No calf tenderness. Negative Homans sign bilaterally. NEUROLOGICAL: Awake and alert. Cranial nerves II through XII intact. Motor and sensory grossly within normal limits. Five out of 5 muscle strength in all muscle groups. Normal speech. Laboratory Laboratory Tests Test 09/04/17 20:42 09/05/17 01:59 09/05/17 04:50 Activated Partial Thromboplast Time 29.2 29.7 White Blood Count 12.8 Red Blood Count 4.69 Hemoglobin 15.5 Hematocrit 43.8 Mean Corpuscular Volume 93.4 Mean Corpuscular Hemoglobin 33.0 Mean Corpuscular Hemoglobin Concent 35.3 Red Cell Distribution Width 12.7 Platelet Count 140 Mean Platelet Volume 9.2 Neutrophils (%) (Auto) 72.1 Lymphocytes (%) (Auto) 16.8 Monocytes (%) (Auto) 9.6 Eosinophils (%) (Auto) 1.2 Basophils (%) (Auto) 0.3 Neutrophils # (Auto) 9.2 Lymphocytes # (Auto) 2.2 Monocytes # (Auto) 1.2 Eosinophils # (Auto) 0.2 Basophils # (Auto) 0.0 CBC Comment DIFF FINAL Differential Comment Blood Urea Nitrogen 10 Creatinine 0.82 Random Glucose 125 Total Protein 7.4 Albumin 3.7 Calcium Level 8.9 Alkaline Phosphatase 76 Aspartate Amino Transf (AST/SGOT) 77 Alanine Aminotransferase (ALT/SGPT) 37 Total Bilirubin 0.7 Sodium Level 138 Potassium Level 3.7 Chloride Level 104 Carbon Dioxide Level 24.6 Anion Gap 9 Estimat Glomerular Filtration Rate 96 Total Creatine Kinase 463 Creatine Kinase MB 34.2 Creatine Kinase MB % 7.4 Troponin I 3.80 Result Diagram: 09/05/17 0450 09/05/17 0450 Imaging Last Impressions Chest X-Ray 09/04/17 1158 Signed Impressions: Service Date/Time: Monday, September 04, 2017 12:10 - CONCLUSION: No acute disease. Bilateral moderate a.c. joint degenerative change. Johana Mcmullen MD Course Currently pain-free s/p LHC. Assessment and Plan Problem List: (1) NSTEMI (non-ST elevated myocardial infarction) ICD Codes: I21.4 - Non-ST elevation (NSTEMI) myocardial infarction Status: Acute (2) CAD (coronary artery disease) ICD Codes: I25.10 - Atherosclerotic heart disease of [place] coronary artery without angina pectoris Assessment and Plan 57y/o male presents with NSTEMI and 2 vessel CAD. CABG recommended. Risks and benefits discussed and he agrees to proceed. ECHO pending to assess valves and EF. Discussed Condition With patient Problem Qualifiers (1) CAD (coronary artery disease): Qualified Codes: I25.110 - Atherosclerotic heart disease of [place] coronary artery with unstable angina pectoris Yue Gilliland MD Sep 05, 2017 14:18
[2017-09-05 14:37] LABS: CHOLESTEROL/ HDL RATIO 3.38 RATIO; HDL CHOLESTEROL 42.5 MG/DL (40.0-60.0)
[2017-09-05] MEDS ORDERED: METOPROLOL TARTRATE 25 MG TAB PO SCH (15:00)
[2017-09-05] MEDS ORDERED: INSULIN REGULAR (IV INFUSION) 100 UNITS in SODIUM CHLORIDE 0.9% INJ 99 ML IV PRN (15:00)
[2017-09-05] MEDS ORDERED: DEXTROSE 50% IN WATER 50 ML VIAL(D50) IV PUSH PRN (15:00)
[2017-09-05] MEDS ORDERED: CHLORHEXIDINE GLUCONATE 4% SOLN 120 ML BTL TOPICAL SCH (15:00)
[2017-09-05] MEDS ORDERED: SODIUM CHLORIDE 0.9% FLUSH 10 ML FLUSH IV FLUSH PRN (15:00)
[2017-09-05] MEDS ORDERED: PAPAVERINE INJ 60 MG, NITROGLYCERIN INJ 100 MCG, DILTIAZEM INJ 100 MG in SODIUM CHLORID... IRRIGATION SCH (16:00)
[2017-09-05] MEDS ORDERED: IOHEXOL 350 MG/ML 50 ML BTL (for Cath Lab) OTHER ONE (16:18)
[2017-09-05] MEDS: HEPARIN-D5W 25,000 U/250 ML 250 ML IV PRN (16:34)
--- NOTE | 2017-09-05 19:12 | ECHRPT ---
Indication: S/P CATH, PRE CABG CONCLUSIONS Normal left ventricular size. Mild concentric left ventricular hypertrophy. The left ventricular systolic function is normal (EF 55%). The left atrial size is bupx-ek-wornstajmy dilated. Trace mitral valve regurgitation. There is trace tricuspid valve regurgitation. BP: / HR: Rhythm: Sinus Technical Quality:Fair FINDINGS LEFT VENTRICLE Normal left ventricular size. Mild concentric left ventricular hypertrophy. The left ventricular systolic function is normal (EF 55%). RIGHT VENTRICLE Normal right ventricular size and systolic function. LEFT ATRIUM The left atrial size is rkgu-wc-plkwjnwrdq dilated. RIGHT ATRIUM The right atrial size is normal. ATRIAL SEPTUM The interatrial septum not well visualized. AORTA The aortic root and proximal ascending aorta are normal in size on limited imaging. MITRAL VALVE Trace mitral valve regurgitation. AORTIC VALVE Trileaflet aortic valve. No aortic valve stenosis or regurgitation. TRICUSPID VALVE There is trace tricuspid valve regurgitation. PULMONARY VALVE No pulmonary valve regurgitation or stenosis. VESSELS The inferior vena cava was not well visualized. PERICARDIUM No pericardial effusion. Alta Pereyra MD, FACC (Electronically Signed) Final Date:05 September 2017 19:11
[2017-09-05] MEDS: SODIUM CHLORIDE 0.9% FLUSH 10 ML FLUSH IV FLUSH SCH (21:00)
[2017-09-05] MEDS: MUPIROCIN 2% OINT 1 APPLIC/GM SYR EACH NARE SCH (21:00)
[2017-09-05] MEDS: PRAVASTATIN SOD 40 MG TAB PO SCH (21:16)
--- NOTE | 2017-09-05 22:05 | RADRPT ---
EXAM DATE/TIME: 09/05/2017 15:53 [facility] COMPARISON: No previous studies available for comparison. INDICATIONS : Preop cardiac surgery. MEDICAL HISTORY : Hypercholesterolemia. Hypertension. Chest pain. Tobacco use. SURGICAL HISTORY : Nasal tumor removed. Cardiac cath. ENCOUNTER: Initial ACUITY: 1 day PAIN SCORE: 7/10 LOCATION: Bilateral leg. TECHNIQUE: Venous ultrasound of the left and right leg was performed from the inguinal ligament to the proximal calf. Real-time, color Doppler and spectral tracing, compression and augmentation techniques were us ed. FINDINGS: RIGHT LEG: There is normal compressibility of the deep venous system from the inguinal region to the proximal ca lf. No echogenic clot is seen in the lumen of the common femoral, femoral, popliteal, and posterior tibial veins. There is a normal response of the venous system to proximal and distal augmentation an d respiration. LEFT LEG: There is normal compressibility of the deep venous system from the inguinal region to the proximal ca lf. No echogenic clot is seen in the lumen of the common femoral, femoral, popliteal, and posterior tibial veins. There is a normal response of the venous system to proximal and distal augmentation an d respiration. CONCLUSION: Normal examination. Phil Martin MD on September 05, 2017 at 22:03 Board Certified Radiologist. This report was verified electronically.
--- NOTE | 2017-09-05 22:26 | RADRPT ---
EXAM DATE/TIME: 09/05/2017 15:28 [facility] COMPARISON: No previous studies available for comparison. INDICATIONS : Preop cardiac surgery. MEDICAL HISTORY : Hypercholesterolemia. Hypertension. Chest pain. Tobacco use. SURGICAL HISTORY : Nasal tumor removed. Cardiac cath. ENCOUNTER: Initial ACUITY: 1 day PAIN SCORE: 7/10 LOCATION: Bilateral neck PEAK SYSTOLIC VELOCITIES (cm/sec): ICA/CCA RATIO: Right: 2.5 Left: 2.5 ICA: Right: 167.1 Left: 180.7 CCA: Right: 68.2 Left: 73.6 ECA: Right: 100.2 Left: 54.2 VERTEBRAL: Right: 65.9 antegrade Left: 27.7 antegrade Elevated flow velocities and ICA/CCA ratios have been found to correlate with increased degrees of vessel stenosis, calculated as percentage of diameter relative to a normal segment of distal ICA/CCA FINDINGS: There is elevated peak systolic velocity bilaterally in the internal carotid arteries with peak systo lic velocity ratio of 2.5 bilaterally. Vertebral artery flow is antegrade bilaterally. CONCLUSION: 1. Moderate plaque around the carotid bifurcations bilaterally with findings most characteristic of c arotid stenosis in the 50-60% range bilaterally. Phil Martin MD on September 05, 2017 at 22:21 Board Certified Radiologist. This report was verified electronically.
--- NOTE | 2017-09-05 23:28 | RADRPT ---
EXAM DATE/TIME: 09/05/2017 16:18 [facility] COMPARISON: US VENOUS MAPPING,LOW EXT,BILAT, September 05, 2017, 19:39. INDICATIONS : Preop cardiac surgery. MEDICAL HISTORY : Hypercholesterolemia. Hypertension. Chest pain. Tobacco use. SURGICAL HISTORY : Nasal tumor removed. Cardiac cath. ENCOUNTER: Initial ACUITY: 1 day PAIN SCORE: 7/10 LOCATION: Bilateral leg. GREATER SAPHENOUS VEIN THIGH: PROXIMAL: Right 5 mm Left 7 mm MID: Right 3 mm Left 6 mm DISTAL: Right 2 mm Left 3 mm CALF: PROXIMAL: Right 2 mm Left 2 mm MID: Right 2 mm Left 1 mm DISTAL: Right 2 mm Left 3 mm FINDINGS: The venous system of the lower extremities are patent by color Doppler imaging. Measurements of the leg veins (in mm) are listed above. CONCLUSION: Venous mapping as above. Giovanni Johnson MD on September 05, 2017 at 23:26 Board Certified Radiologist. This report was verified electronically.
[2017-09-06] VITALS (8 sets, daily range): BP systolic 129–151; BP diastolic 75–93; PULSE 77–106; RESP 10–18; TEMP 97.4–98.6; O2SAT 93–97
[2017-09-06] MEDS: MORPHINE SULFATE 2 MG/ML INJ IV PUSH PRN ×2 (01:54→07:53)
[2017-09-06] MEDS: NITROGLYCERIN-D5W 50 MG/250 ML 250 ML IV PRN (03:59)
[2017-09-06 05:07] LABS: BILIRUBIN, URINE NEG (NEG); BLOOD, URINE NEG (NEG); GLUCOSE,URINE NEG (NEG); KETONE, URINE TRACE mg/dL (NEG); MUCUS URINE FEW /lpf (OCC); NITRITE,URINE NEG (NEG); PH, URINE 5.5 (5.0-8.5); URINE COLOR YELLOW (YELLW/STRAW); URINE LEUKOCYTE ESTERASE NEG (NEG)
[2017-09-06 05:11] LABS: AUTOMATED NEUTROPHIL # 8.4 TH/MM3 (1.8-7.7); BASOPHIL % 0.3 % (0.0-2.0); EOSINOPHIL # 0.1 TH/MM3 (0-0.4); EOSINOPHIL % 0.7 % (0.0-4.0); HEMATOCRIT 38.9 % (39.0-51.0); HEMOGLOBIN 13.5 GM/DL (13.0-17.0); LYMPHOCYTE # 1.5 TH/MM3 (1.0-4.8); MEAN CELL VOLUME 93.4 FL (80.0-100.0); MEAN CORPUSCULAR HEMOGLOBIN 32.4 PG (27.0-34.0); MEAN CORPUSCULAR HGB CONC 34.7 % (32.0-36.0); MEAN PLATELET VOLUME 9.8 FL (7.0-11.0); MONO % 10.8 % (0.0-8.0); MONOCYTE # 1.2 TH/MM3 (0-0.9); NEUT % 75.2 % (16.0-70.0); PLATELET COUNT 122 TH/MM3 (150-450); RED BLOOD COUNT 4.17 MIL/MM3 (4.50-5.90); WHITE BLOOD COUNT 11.2 TH/MM3 (4.0-11.0)
[2017-09-06 05:39] LABS: BICARBONATE 26.1 MEQ/L (21.0-32.0); CALCIUM 8.2 MG/DL (8.5-10.1); CREATININE 0.73 MG/DL (0.60-1.30)
[2017-09-06] MEDS: METOPROLOL TARTRATE 25 MG TAB PO SCH (06:16)
[2017-09-06] MEDS ORDERED: METOPROLOL TARTRATE 25 MG TAB PO PRN (07:00)
[2017-09-06] MEDS ORDERED: LACTATED RINGER'S 1000 ML IV PRN (07:00)
[2017-09-06] MEDS ORDERED: INSULIN HUMAN REGULAR 1,000 UNITS/10 ML VIAL SQ PRN (07:00)
[2017-09-06] MEDS ORDERED: POVIDONE IODINE 5% (ANTISEPSIS KIT) 4 APPLICATIONS EACH NARE PRN (07:00)
[2017-09-06] MEDS ORDERED: CHLORHEXIDINE GLUCONATE 2 % 1 PACK (2 CLOTHS) TOPICAL PRN (07:00)
[2017-09-06] MEDS ORDERED: SODIUM CHLORID 0.9% 500 ML IV PRN (07:00)
--- NOTE | 2017-09-06 07:52 | HHI.PR ---
Subjective Remarks f/u; NSTEMI in no acute distress. had minimal to mild on and off chest pain over night. no sob. Objective Vitals Vital Signs Date Time Temp Pulse Resp B/P (MAP) Pulse Ox O2 Delivery O2 Flow Rate FiO2 09/06/17 07:00 89 09/06/17 07:00 98.1 92 16 140/86 (104) 94 09/06/17 03:59 85 129/76 09/06/17 03:00 97.9 82 18 129/76 (93) 94 09/05/17 23:00 82 09/05/17 23:00 98.0 78 20 138/81 (100) 94 09/05/17 22:00 80 132/80 09/05/17 21:00 90 145/83 09/05/17 19:00 84 09/05/17 19:00 98.7 88 16 138/86 (103) 96 09/05/17 18:00 89 09/05/17 17:00 93 09/05/17 16:00 81 16 140/88 (105) 97 09/05/17 16:00 104 09/05/17 15:00 82 09/05/17 15:00 98.9 82 16 144/83 (103) 96 09/05/17 15:00 100 09/05/17 14:00 101 09/05/17 13:51 90 16 135/84 (101) 96 09/05/17 12:00 84 09/05/17 11:00 78 09/05/17 11:00 98.6 88 16 136/68 (90) 98 09/05/17 11:00 88 09/05/17 10:00 82 09/05/17 09:18 83 136/86 09/05/17 09:10 85 140/89 (106) 09/05/17 09:01 84 09/05/17 07:55 99.2 91 18 141/82 (101) 98 I/O 09/05/17 09/05/17 09/05/17 09/06/17 09/06/17 09/06/17 07:00 15:00 23:00 07:00 15:00 23:00 Intake Total 200 ml 1108 ml Output Total 750 ml 400 ml 700 ml 850 ml Balance -750 ml -400 ml -500 ml 258 ml Intake Oral 200 ml 480 ml IV Total 628 ml Output Urine Total 750 ml 400 ml 700 ml 850 ml # Bowel Movements 0 Result Diagram: 09/06/17 0320 09/06/17 0320 Imaging Last Impressions Lower Extremity Ultrasound 09/05/17 0000 Signed Impressions: Service Date/Time: Tuesday, September 05, 2017 16:18 - CONCLUSION: Venous mapping as above. Giovanni Johnson MD Carotid Artery Ultrasound 09/05/17 0000 Signed Impressions: Service Date/Time: Tuesday, September 05, 2017 15:28 - CONCLUSION: 1. Moderate plaque around the carotid bifurcations bilaterally with findings most characteristic of carotid stenosis in the 50-60%% range bilaterally. Phil Martin MD Chest X-Ray 09/04/17 1158 Signed Impressions: Service Date/Time: Monday, September 04, 2017 12:10 - CONCLUSION: No acute disease. Bilateral moderate a.c. joint degenerative change. Johana Mcmullen MD Objective Remarks GENERAL: This is a well-nourished, well-developed patient, in no apparent distress. CARDIOVASCULAR: Regular rate and regular rhythm without murmurs, gallops, or rubs. RESPIRATORY: Clear to auscultation. Breath sounds equal bilaterally. No wheezes , rales, or rhonchi. GASTROINTESTINAL: Abdomen soft, non-tender, nondistended. Normal, active bowel sounds MUSCULOSKELETAL: Extremities without clubbing, cyanosis, or edema. NEURO: Alert & Oriented x4 to person, place, time, situation. Moves all ext x4 Procedures cardiac cath Medications and IVs Inpatient Medications Acetaminophen (Tylenol) 650 mg Q4H PRN PO temp > 101 or MARTINEZ; Start 09/04/17 at 20:00 Amlodipine Besylate (Norvasc) 5 mg DAILY PO Last administered on 09/05/17at 09: 08; Start 09/04/17 at 14:15 Aspirin (Aspirin Chew) 162 mg ONCE ONCE CHEW Last administered on 09/04/17at 12 :14; Start 09/04/17 at 12:00; Stop 09/04/17 at 12:03; Status DC Cefazolin Sodium 500 mg/Sodium Chloride 505 ml @ 0 mls/hr DISTRICT SALES COORDINATOR IRRIGATION ; Start 09/05/17 at 16:00; Stop 09/12/17 at 15:59 Cefazolin Sodium/ Dextrose 50 ml @ 150 mls/hr DISTRICT SALES COORDINATOR IV ; Start 09/05/17 at 15:00; Stop 09/12/17 at 14:59 Chlorhexidine Gluconate (Chlorhexidine 2% Cloth) 3 pack DISTRICT SALES COORDINATOR PRN TOPICAL SEE LABEL COMMENTS; Start 09/06/17 at 07:00; Stop 09/09/17 at 06:59 Chlorhexidine Gluconate (Hibiclens 4% Top Soln) 1 applic DISTRICT SALES COORDINATOR TOPICAL Last administered on 09/06/17at 07:31; Start 09/05/17 at 15:00; Stop 09/12/17 at 14:59 Dextrose (D50w (Vial) Inj) 50 ml UNSCH PRN IV PUSH HYPOGLYCEMIA-SEE COMMENTS; Start 09/05/17 at 15:00 Heparin Sodium (Porcine) (Heparin Inj) 4,000 units ONCE ONCE IV Last administered on 09/04/17at 13:03; Start 09/04/17 at 13:00; Stop 09/04/17 at 13:02 ; Status DC Heparin Sodium/ Dextrose 250 ml @ 10 mls/hr TITRATE PRN IV Coagulation Management Last administered on 09/05/17at 16:34; Start 09/04/17 at 13:00 Hydralazine HCl (Apresoline Inj) 10 mg Q6H PRN IV PUSH SEE LABEL COMMENTS Last administered on 09/05/17at 04:22; Start 09/04/17 at 22:15 Insulin Human Regular (NovoLIN R INJ) See Protocol Table ... DISTRICT SALES COORDINATOR PRN SQ SEE PROTOCOL TABLE; Start 09/06/17 at 07:00; Stop 09/09/17 at 06:59 Insulin Human Regular 100 units/ Sodium Chloride 100 ml @ 3 mls/hr TITRATE PRN IV for blood glucose control; Start 09/05/17 at 15:00; Stop 09/12/17 at 14:59 Lactated Ringer's 1,000 ml @ 30 mls/hr Q24H PRN IV SEE LABEL COMMENTS; Start at 07:00; Stop 09/09/17 at 06:59 Lorazepam (Ativan Inj) 0.5 mg ONCE ONCE IV PUSH Last administered on at 04:56; Start 09/05/17 at 05:00; Stop 09/05/17 at 05:01; Status DC Lorazepam (Ativan) 0.5 mg ONCE ONCE PO Last administered on 09/04/17at 14:54; Start 09/04/17 at 15:00; Stop 09/04/17 at 15:01; Status DC Metoprolol Tartrate (Lopressor) 25 mg DISTRICT SALES COORDINATOR PRN PO SEE LABEL COMMENTS; Start 09/06/17 at 07:00; Stop 09/09/17 at 06:59 Morphine Sulfate (Morphine Inj) 2 mg Q3HR PRN IV PUSH pain > 4 Last administered on 09/06/17at 01:54; Start 09/04/17 at 20:00 Mupirocin (Bactroban Nasal 2% Oint) 1 applic BID EACH NARE Last administered on 09/05/17at 21:00; Start 09/05/17 at 15:00; Stop 09/10/17 at 14:59 Nitroglycerin (Nitroglycerin 2% Oint) 1 inch Q6HR TOPICAL Last administered on 09/04/17at 22:30; Start 09/05/17 at 00:00; Stop 09/05/17 at 04:39; Status DC Nitroglycerin/ Dextrose 250 ml @ 1.5 mls/hr TITRATE PRN IV Chest pain relief Last administered on 09/06/17at 03:59; Start 09/05/17 at 04:45 Ondansetron HCl (Zofran Inj) 4 mg Q6H PRN IV PUSH NAUSEA OR VOMITING Last administered on 09/04/17at 23:35; Start 09/04/17 at 20:00 Papaverine HCl 60 mg/Nitroglycerin 100 mcg/Diltiazem HCl 100 mg/Sodium Chloride 100 ml @ 0 mls/hr DISTRICT SALES COORDINATOR IRRIGATION ; Start 09/05/17 at 16:00; Stop 09/12/17 at 15:59 Povidone Iodine (Betadine 5% Antisepsis Kit) 1 applic DISTRICT SALES COORDINATOR PRN EACH NARE SEE LABEL COMMENTS Last administered on 09/06/17at 07:31; Start 09/06/17 at 07:00 ; Stop 09/09/17 at 06:59 Pravastatin Sodium (Pravachol) 40 mg HS PO Last administered on 09/05/17at 21:16 ; Start 09/04/17 at 21:00 Sodium Chloride 500 ml @ 30 mls/hr [id number] PRN IV SEE LABEL COMMENTS; Start at 07:00; Stop 09/09/17 at 06:59 Sodium Chloride (NS Flush) 2 ml UNSCH PRN IV FLUSH FLUSH AFTER USING IV ACCESS ; Start 09/05/17 at 15:00 A/P Assessment and Plan A/P -NSTEMI -s/p cardiac cath with two-vessel disease -on Heparin and Nitro drip -continue metoprolol -CT surgery consulted and plan for CABG -cardiology following. Hypertensive emergency-resolved - continue metoprolol - Continue home Norvasc DVT prophylaxis; On heparin drip Discharge Planning awaiting CABG. Sid Robles MD Sep 06, 2017 07:52
--- NOTE | 2017-09-06 08:13 | MB ---
cc: RUPERTO RHODES DO DATE OF CONSULTATION 09/05/2017 REASON FOR CONSULTATION NSTEMI HISTORY OF PRESENT ILLNESS Cortes Pollock is a pleasant 57-year-old male who presented to [facility] emergency room on September 04, 2017 due to chest pain. He is down visiting from [place] and started experiencing gradual onset of diffuse chest pain across the center of his chest. The first pain was intermittent and did not respond to Tylenol or Advil. During the past few days, the pain would come on and then resolve by itself, but when he laid down at night, the pain would get worse. Due to the persistence of his symptoms, he decided to come to the emergency room. He states that he has never had any type of pain like this before. On arrival to the emergency room, he was found to have an elevated troponin. I was asked to see the patient for consideration of cardiac catheterization. In seeing him, he is currently on a heparin and nitroglycerin drip and chest pain-free. PAST MEDICAL HISTORY 1. Hypertension 2. Hyperlipidemia PAST SURGICAL HISTORY Denies ALLERGIES NO KNOWN DRUG ALLERGIES. MEDICATIONS 1. Norvasc 5 mg daily 2. Aspirin 81 mg daily 3. Cholesterol medication for which the patient is unsure. SOCIAL HISTORY The patient smokes around three-quarters of a pack of cigarettes a day. Denies alcohol or drug abuse. FAMILY HISTORY Father had a history of a CVA. Denies sudden cardiac within the family. REVIEW OF SYSTEMS 14-systems were reviewed including osteopathic pertinent positives and negatives as above otherwise negative. PHYSICAL EXAMINATION VITAL SIGNS: Temperature 99.2, heart rate 91, blood pressure 141/82, respirations 18, pulse ox 98% on room air. GENERAL: The patient appears well in no acute distress, alert awake and oriented x3. HEAD, EYES, EARS, NOSE, AND THROAT: Extraocular muscles intact. Mucous membranes moist. NECK: Supple. No JVD at 45 degrees. No carotid bruits heard bilaterally. Carotid upstroke is brisk in nature. HEART: Regular rate and rhythm. Positive first and second heart sounds with no murmurs, gallops or rubs. LUNGS: Clear to auscultation bilaterally. No wheezes, rales or rhonchi. ABDOMEN: Soft, nontender, nondistended. No organomegaly noted. EXTREMITIES: Show no clubbing, cyanosis or edema. Femoral and distal pulses are intact bilaterally. NEUROLOGIC: No focal deficits. SKIN: Warm, dry and intact. OSTEOPATHIC: No kyphoscoliosis, lordosis or paraspinal tender points. LABORATORY FINDINGS Hemoglobin 15.5, hematocrit 43.8, platelets 140. Potassium 3.7, BUN 10, creatinine 0.82, troponin 3.8. Electrocardiogram (September 05, 2017 at 0428) sinus tachycardia, left axis deviation, LVH, ST-T wave changes anterolaterally may be due to ischemia versus hypertrophy. IMPRESSION 1. NSTEMI 2. Chest pain concerning for coronary insufficiency. 3. Hypertension 4. Hyperlipidemia 5. Tobacco abuse RECOMMENDATIONS 1. Mr. Berrios presented with concerning chest pain as well as elevated troponin and because of this, he will recommended cardiac catheterization. The risks, benefits and alternatives were explained to the patient and he consents as such. 2. He will be continued on a heparin drip as well as nitroglycerin drip. Heparin drip will be stopped location analyst to the laboratory miller. 3. We will check a 2-D echo to look at his overall left ventricular function, cardiac structure and possible valvopathies. 4. I spoke to him for greater than three minutes about tobacco cessation and he states that after this event, he definitely is quitting cigarettes. 5. Further recommendations will be made based on the hospital course. Thank you for allowing me to see Cortes Berrios. If there any questions, please do not hesitate to call. Ruperto Rhodes DO VGP/DJL /10:50 PM /8:02 AM
[2017-09-06] MEDS: amLODIPine BESYLATE 5 MG TAB PO SCH (08:24)
[2017-09-06] MEDS: SODIUM CHLORIDE 0.9% FLUSH 10 ML FLUSH IV FLUSH SCH ×2 (08:24→20:26)
--- NOTE | 2017-09-06 08:35 | MA ---
cc: GAURANG RHODES DO DATE September 05, 2017 PROCEDURE Left heart catheterization, coronary angiogram, moderate sedation 26 minutes. PREPROCEDURE DIAGNOSIS NSTEMI, chest pain concerning for coronary insufficiency. POSTPROCEDURE DIAGNOSIS Multivessel coronary artery disease. MEDICATIONS 1. Versed 0.5 mg. 2. Fentanyl 25 mcg. 3. Verapamil 2.5 mg. 4. Nitro 200 mcg. 5. Heparin 4000 units. CONTRAST USED 50 cc. MODERATE SEDATION 26 minutes FLUOROSCOPY 2.7 minutes ESTIMATED BLOOD LOSS 10 cc. PROCEDURAL SUMMARY Cortes Berrios is a pleasant 57-year-old male who presented to [facility] Emergency Room due to chest pain. He was found to have an elevated troponin and recommended left heart catheterization. The risks, benefits and alternatives were explained to him and he consented as such. He was brought to the lab and prepped in the usual sterile fashion. The right radial artery was accessed using a modified Seldinger technique and placement of a 5/6-[place] Slender Sheath. This was easily aspirated and flushed. A JR-4 was advanced over a J-wire to the ascending aorta and across the aortic valve for measurement of left ventricular pressure. This was pulled back across the aortic valve showing no significant gradient of aortic stenosis. JR-4 was used for selective angiography of the right coronary artery system. This was exchanged out for a JL-3.5 which was used for selective angiography of the left coronary artery system. The JL-3.5 was removed over a J-wire. A radial band was placed over the arteriotomy site for hemostasis. The patient left the shop laborer in a guarded position. FINDINGS LEFT MAIN: A short vessel. It trifurcates into an LAD, ramus and circumflex. LAD: Normal-sized vessel with mild luminal irregularities throughout the proximal portion. In the proximal to mid-portion there is a 70% stenosis. Distally there is a long tubular 80% stenosis. Distally there is no significant disease. It gives off two major diagonals with the first one being large and no significant disease. The second one is overall a small vessel. RAMUS: Normal-sized vessel with 60-70% stenosis in the ostial portion. LEFT CIRCUMFLEX: Normal-sized vessel with a 70% lesion in the proximal portion. Distal to this there is a long, tubular 90-95% stenosis before bifurcating into first and second obtuse marginal. The obtuse marginals have no significant disease. RCA: Normal-sized vessel with significant tortuosity throughout the midportion. There are multiple lesions of up to around 50%. At the takeoff of the PDA there is a 60% lesion. LVEDP: 19. IMPRESSIONS 1. Chest pain concerning for coronary insufficiency. 2. NSTEMI. 3. Multivessel coronary artery disease. 4. Hypertension. 5. Hyperlipidemia. 6. Tobacco abuse. RECOMMENDATIONS 1. Mr. Berrios presented with chest pain concerning for coronary insufficiency and was found to have multivessel disease. 2. Due to the complexity of the multivessel disease including long overall lesions, I feel that he should be evaluated by CT Surgery for possible two to three vessel bypass. I spoke with Dr. Gilliland who will see him in consultation. 3. Did discuss with him that, if he did not feel comfortable with open heart surgery, then I would consider higher risk PCI. 4. We will check a 2-D echo to look at his overall left ventricular function, cardiac structure and possible valvopathies. 5. He will be continued on his nitroglycerin drip. Heparin drip will be restarted 1 hour after TR band is removed. 6. Further recommendations will be made based on evaluation by CT Surgery. Thank you for allowing me to see Cortes Berrios. If there are any questions please do not hesitate to call. Gaurang Rhodes DO VGP/SSB /11:33 PM /8:22 AM
[2017-09-06] MEDS: MUPIROCIN 2% OINT 1 APPLIC/GM SYR EACH NARE SCH ×2 (09:00→20:16)
--- NOTE | 2017-09-06 09:57 | PD.CAR.PN ---
CVT Progress Note Subjective/Hospital Course: Patient c/o 10/10 chest pain this morning refractory to IV NTG, heparin, and ASA. Objective: Vital Signs Date Time Temp Pulse Resp B/P (MAP) Pulse Ox O2 Delivery O2 Flow Rate FiO2 09/06/17 07:00 89 09/06/17 07:00 98.1 92 16 140/86 (104) 94 09/06/17 03:59 85 129/76 09/06/17 03:00 97.9 82 18 129/76 (93) 94 09/05/17 23:00 82 09/05/17 23:00 98.0 78 20 138/81 (100) 94 09/05/17 22:00 80 132/80 09/05/17 21:00 90 145/83 09/05/17 19:00 84 09/05/17 19:00 98.7 88 16 138/86 (103) 96 09/05/17 18:00 89 09/05/17 17:00 93 09/05/17 16:00 81 16 140/88 (105) 97 09/05/17 16:00 104 09/05/17 15:00 82 09/05/17 15:00 98.9 82 16 144/83 (103) 96 09/05/17 15:00 100 09/05/17 14:00 101 09/05/17 13:51 90 16 135/84 (101) 96 09/05/17 12:00 84 09/05/17 11:00 78 09/05/17 11:00 98.6 88 16 136/68 (90) 98 09/05/17 11:00 88 09/05/17 10:00 82 Labs: Laboratory Tests Test 09/05/17 22:56 09/06/17 03:20 09/06/17 04:40 09/06/17 04:45 Activated Partial Thromboplast Time 29.6 SEC (24.3-30.1) 27.9 SEC (24.3-30.1) White Blood Count 11.2 TH/MM3 (4.0-11.0) Red Blood Count 4.17 MIL/MM3 (4.50-5.90) Hemoglobin 13.5 GM/DL (13.0-17.0) Hematocrit 38.9 % (39.0-51.0) Mean Corpuscular Volume 93.4 FL (80.0-100.0) Mean Corpuscular Hemoglobin 32.4 PG (27.0-34.0) Mean Corpuscular Hemoglobin Concent 34.7 % (32.0-36.0) Red Cell Distribution Width 13.0 % (11.6-17.2) Platelet Count 122 TH/MM3 (150-450) Mean Platelet Volume 9.8 FL (7.0-11.0) Neutrophils (%) (Auto) 75.2 % (16.0-70.0) Lymphocytes (%) (Auto) 13.0 % (9.0-44.0) Monocytes (%) (Auto) 10.8 % (0.0-8.0) Eosinophils (%) (Auto) 0.7 % (0.0-4.0) Basophils (%) (Auto) 0.3 % (0.0-2.0) Neutrophils # (Auto) 8.4 TH/MM3 (1.8-7.7) Lymphocytes # (Auto) 1.5 TH/MM3 (1.0-4.8) Monocytes # (Auto) 1.2 TH/MM3 (0-0.9) Eosinophils # (Auto) 0.1 TH/MM3 (0-0.4) Basophils # (Auto) 0.0 TH/MM3 (0-0.2) CBC Comment DIFF FINAL Differential Comment Blood Urea Nitrogen 10 MG/DL (7-18) Creatinine 0.73 MG/DL (0.60-1.30) Random Glucose 113 MG/DL (74-106) Calcium Level 8.2 MG/DL (8.5-10.1) Sodium Level 137 MEQ/L (136-145) Potassium Level 3.3 MEQ/L (3.5-5.1) Chloride Level 103 MEQ/L (98-107) Carbon Dioxide Level 26.1 MEQ/L (21.0-32.0) Anion Gap 8 MEQ/L (5-15) Estimat Glomerular Filtration Rate 110 ML/MIN (>89) Urine Color YELLOW (YELLW/STRAW) Urine Turbidity CLEAR (CLEAR) Urine pH 5.5 (5.0-8.5) Urine Specific [place] 1.019 (1.002-1.035) Urine Protein NEG mg/dL (NEG-TRACE) Urine Glucose (UA) NEG mg/dL (NEG) Urine Ketones TRACE mg/dL (NEG) Urine Occult Blood NEG (NEG) Urine Nitrite NEG (NEG) Urine Bilirubin NEG (NEG) Urine Urobilinogen 2.0 MG/DL (LESS THAN Urine Leukocyte Esterase NEG (NEG) Urine RBC 1 /hpf (0-3) Urine WBC LESS THAN 1 /hpf (0-5) Urine Mucus FEW /lpf (OCC) Microscopic Urinalysis Comment CULT NOT INDICATED Nasal Screen MRSA (PCR) MRSA NOT DETECTED (NOT Result Diagram: 09/06/17 0320 09/06/17 0320 Imaging: Last Impressions Lower Extremity Ultrasound 09/05/17 0000 Signed Impressions: Service Date/Time: Tuesday, September 05, 2017 16:18 - CONCLUSION: Venous mapping as above. Gioavnni Johnson MD Carotid Artery Ultrasound 09/05/17 0000 Signed Impressions: Service Date/Time: Tuesday, September 05, 2017 15:28 - CONCLUSION: 1. Moderate plaque around the carotid bifurcations bilaterally with findings most characteristic of carotid stenosis in the 50-60%% range bilaterally. Phil Martin MD Chest X-Ray 09/04/17 1158 Signed Impressions: Service Date/Time: Monday, September 04, 2017 12:10 - CONCLUSION: No acute disease. Bilateral moderate a.c. joint degenerative change. Johana Mcmullen MD Cardiovascular: RRR Telemetry: NSR Pulmonary: CTA GI/: NABS, NT Plan: Patient has unstable symptoms this morning and will be be transferred to the OR emergently for CABG. Yue Gilliland MD Sep 06, 2017 09:57
[2017-09-06] MEDS ORDERED: methylPREDNISolone SOD SUCC 125 MG/2 ML VIAL ONE (09:58)
[2017-09-06] MEDS ORDERED: ceFAZolin 2 GM PREMIX 50 ML ONE (09:59)
[2017-09-06] MEDS ORDERED: HEPARIN SODIUM - SQ 10,000 UNITS/ML VIAL ONE (09:59)
[2017-09-06] MEDS ORDERED: MIDAZOLAM HCL 2 MG/2 ML VIAL ONE ×2 (09:59)
[2017-09-06] MEDS ORDERED: VANCOMYCIN HCL 1000 MG VIAL ONE (09:59)
[2017-09-06] MEDS ORDERED: fentaNYL CITRATE 1000 MCG/20 ML VIAL ONE (09:59)
[2017-09-06] MEDS ORDERED: ALBUMIN 25% INJ 50 ML IV ONE (10:22)
[2017-09-06] MEDS ORDERED: CARDIOPLEGIC IRR 2,000 ML ONE (10:22)
[2017-09-06] MEDS ORDERED: HEPARIN SODIUM - IV 10,000 UNITS/10 ML VIAL ONE (10:23)
[2017-09-06] MEDS ORDERED: POTASSIUM CHLORIDE 40 MEQ/20 ML VIAL ONE (10:23)
[2017-09-06] MEDS ORDERED: MANNITOL INJ 100 ML ONE (10:23)
[2017-09-06] MEDS ORDERED: SODIUM BICARBONATE 8.4% INJ 50 ML ONE (10:24)
[2017-09-06] MEDS ORDERED: CALCIUM CHLORIDE 10% SOLN 1 GRAM/10 ML SYR ONE (10:24)
[2017-09-06] MEDS: ceFAZolin 2 GM PREMIX 50 ML IV SCH ×2 (11:15→13:06)
[2017-09-06] MEDS ORDERED: PROTAMINE SULFATE 50 MG/5 ML VIAL IV ONE (12:00)
[2017-09-06] MEDS ORDERED: MAGNESIUM SULFATE 1 GM/2 ML VIAL IV ONE (12:00)
[2017-09-06] MEDS ORDERED: SODIUM CHLOR 0.9% 250 ML INJ 1,000 ML IV ONE (12:00)
[2017-09-06] MEDS ORDERED: LACTATED RINGER'S 1000 ML INJ 2,000 ML IV ONE (12:00)
[2017-09-06] MEDS ORDERED: DEXMEDETOMIDINE HCL 200 MCG/2 ML VIAL IV ONE (12:00)
[2017-09-06] MEDS ORDERED: SUCCINYLCHOLINE CHLORIDE 100 MG/5 ML SYRINGE IV PUSH ONE (12:00)
[2017-09-06] MEDS ORDERED: SODIUM CHLORID 0.9% 500 ML INJ 1,000 ML IV ONE (12:00)
[2017-09-06] MEDS ORDERED: VECURONIUM BROMIDE 10 MG VIAL IV ONE (12:00)
[2017-09-06] MEDS ORDERED: ePHEDrine/NS 25 MG/5 ML SYRINGE IV ONE (12:00)
[2017-09-06] MEDS ORDERED: PHENYLEPHRINE HCL 10 MG/ML VIAL IV ONE (12:00)
[2017-09-06] MEDS ORDERED: NORMOSOL R INJ 2,000 ML IV ONE (12:00)
[2017-09-06] MEDS ORDERED: PHENYLEPH/NS 1000 MCG/10 ML SYR IV ONE (12:00)
[2017-09-06] MEDS ORDERED: NS 100 ML (PAB BAG) 300 ML IV ONE (12:00)
[2017-09-06] MEDS ORDERED: HEPARIN SODIUM - SQ 10,000 UNITS/ML VIAL OTHER ONE (12:00)
[2017-09-06] MEDS ORDERED: TRANEXAMIC ACID INJ 1,000 MG/10 ML AMP IV ONE (12:00)
[2017-09-06] MEDS: CEFAZOLIN INJ 500 MG in SODIUM CHLORIDE 0.9% IRR BTL 500 ML IRRIGATION SCH ×2 (13:09→15:01)
[2017-09-06] MEDS ORDERED: PROTAMINE SULFATE 50 MG/5 ML VIAL ONE (13:20)
--- NOTE | 2017-09-06 13:23 | PD.CAR.PN ---
CVT Progress Note Subjective/Hospital Course: sts data discussed with pt RISK SCORES About the STS Risk Calculator Procedure: CAB Only Risk of Mortality: 0.35% Morbidity or Mortality: 5.705% Long Length of Stay: 1.848% Short Length of Stay: 74.222% Permanent Stroke: 0.244% Prolonged Ventilation: 4.109% DSW Infection: 0.281% Renal Failure: 0.54% Reoperation: 2.815% Objective: Vital Signs Date Time Temp Pulse Resp B/P (MAP) Pulse Ox O2 Delivery O2 Flow Rate FiO2 09/06/17 07:00 89 09/06/17 07:00 98.1 92 16 140/86 (104) 94 09/06/17 03:59 85 129/76 09/06/17 03:00 97.9 82 18 129/76 (93) 94 09/05/17 23:00 82 09/05/17 23:00 98.0 78 20 138/81 (100) 94 09/05/17 22:00 80 132/80 09/05/17 21:00 90 145/83 09/05/17 19:00 84 09/05/17 19:00 98.7 88 16 138/86 (103) 96 09/05/17 18:00 89 09/05/17 17:00 93 09/05/17 16:00 81 16 140/88 (105) 97 09/05/17 16:00 104 09/05/17 15:00 82 09/05/17 15:00 98.9 82 16 144/83 (103) 96 09/05/17 15:00 100 09/05/17 14:00 101 09/05/17 13:51 90 16 135/84 (101) 96 Labs: Laboratory Tests Test 09/06/17 03:20 09/06/17 04:40 09/06/17 04:45 White Blood Count 11.2 TH/MM3 (4.0-11.0) Red Blood Count 4.17 MIL/MM3 (4.50-5.90) Hemoglobin 13.5 GM/DL (13.0-17.0) Hematocrit 38.9 % (39.0-51.0) Mean Corpuscular Volume 93.4 FL (80.0-100.0) Mean Corpuscular Hemoglobin 32.4 PG (27.0-34.0) Mean Corpuscular Hemoglobin Concent 34.7 % (32.0-36.0) Red Cell Distribution Width 13.0 % (11.6-17.2) Platelet Count 122 TH/MM3 (150-450) Mean Platelet Volume 9.8 FL (7.0-11.0) Neutrophils (%) (Auto) 75.2 % (16.0-70.0) Lymphocytes (%) (Auto) 13.0 % (9.0-44.0) Monocytes (%) (Auto) 10.8 % (0.0-8.0) Eosinophils (%) (Auto) 0.7 % (0.0-4.0) Basophils (%) (Auto) 0.3 % (0.0-2.0) Neutrophils # (Auto) 8.4 TH/MM3 (1.8-7.7) Lymphocytes # (Auto) 1.5 TH/MM3 (1.0-4.8) Monocytes # (Auto) 1.2 TH/MM3 (0-0.9) Eosinophils # (Auto) 0.1 TH/MM3 (0-0.4) Basophils # (Auto) 0.0 TH/MM3 (0-0.2) CBC Comment DIFF FINAL Differential Comment Activated Partial Thromboplast Time 27.9 SEC (24.3-30.1) Blood Urea Nitrogen 10 MG/DL (7-18) Creatinine 0.73 MG/DL (0.60-1.30) Random Glucose 113 MG/DL (74-106) Calcium Level 8.2 MG/DL (8.5-10.1) Sodium Level 137 MEQ/L (136-145) Potassium Level 3.3 MEQ/L (3.5-5.1) Chloride Level 103 MEQ/L (98-107) Carbon Dioxide Level 26.1 MEQ/L (21.0-32.0) Anion Gap 8 MEQ/L (5-15) Estimat Glomerular Filtration Rate 110 ML/MIN (>89) Urine Color YELLOW (YELLW/STRAW) Urine Turbidity CLEAR (CLEAR) Urine pH 5.5 (5.0-8.5) Urine Specific [place] 1.019 (1.002-1.035) Urine Protein NEG mg/dL (NEG-TRACE) Urine Glucose (UA) NEG mg/dL (NEG) Urine Ketones TRACE mg/dL (NEG) Urine Occult Blood NEG (NEG) Urine Nitrite NEG (NEG) Urine Bilirubin NEG (NEG) Urine Urobilinogen 2.0 MG/DL (LESS THAN Urine Leukocyte Esterase NEG (NEG) Urine RBC 1 /hpf (0-3) Urine WBC LESS THAN 1 /hpf (0-5) Urine Mucus FEW /lpf (OCC) Microscopic Urinalysis Comment CULT NOT INDICATED Nasal Screen MRSA (PCR) MRSA NOT DETECTED (NOT Result Diagram: 09/06/1731909/06/[id number] Johana Hoffman Sep 06, 2017 13:23
--- NOTE | 2017-09-06 13:31 | HHI.FF ---
Face to Face Verification Diagnosis: (1) S/P CABG (coronary artery bypass graft) (2) NSTEMI (non-ST elevated myocardial infarction) (3) CAD (coronary artery disease) Home Health Nursing Order: Signs/symptoms of disease process Medication education-adverse effect Wound care and dressing changes Nursing assessment with vital signs Instructions: Heart and Vascular Surgery patients *Special attention to sternal dressing Mandatory frequency Assess and evaluation, 4 days in a row The next week 3X week 2 times a week for 4 weeks 1 time a week for 5 weeks Schedule Heart and Vascular patients for full 60 day certification period Initial visit Review Open Heart Surgery Discharge Instructions (Sternal precautions, Activity, Elastic hose, Incision care, Driving, Incentive spirometry, Smoking, [place], Work and other) Need Betadine to paint incision Medication reconciliation Importance of follow up care/ check on appointments Make calendar record temperature daily When to call [facility] Home nurse, review instructions, phone list Incentive Spirometry, demonstration Visit 1- Begin discharge instruction for patient family and/ or caregiver using teach back method- Signs and symptoms of infection Disease characteristics Medicines and side effects Foods and nutrition/ appetite Infection control/ hand washing/ hygiene Visit 2- Continue teaching Discharge instructions- include additional information on smoking cessation , sternal dressing (sternal vac) Visit 3- Continue teaching- Cough and deep breathing, incision monitoring. Choose my plate Visit 4- Continue teaching- Discuss limitations Discuss how they are feeling Discuss progress toward goals Remaining visits- continue teaching and monitoring For any questions please call : Tuesday 8am-5pm Heart & Vascular Surgery Office ( Dr. Davila & Dr. Gilliland), After Hours / Nights (5pm -8am) Weekends and Holidays Please call [facility] Cardiac Intermediate Care Unit (CIC) Charge Nurse PREVENA Single Use Negative Wound Therapy System Caregiver Instruction Sheet 1. A Prevena dressing system was applied to the chest incision during surgery , to promote wound healing. It works via a suction device (negative pressure wound therapy) to remove low to moderate levels of exudate (drainage) and infectious materials. We recommend that the device stay in place for up to seven days, from day of surgery. 2. Day of Surgery__/ Day of Removal ___/ 3. The dressing should only be removed by a health family member caretaker. Please arrange removal of device to coincide with Home Health visit and or with Nursing staff at Rehab 4. If skin reddening or irritation of skin occurs, or excessive drainage, please notify the Cardiovascular Surgeons office at [phone]. 5. Light showering is permissible; however the pump should be disconnected and placed in safe location, where it will not get wet. The dressing should not be exposed to direct spray or submerged in water. No bath tub / shower only. Ensure the end of the tubing attached to the dressing is facing down so that water does not enter the top of the tube. 6. To remove Prevena dressing: press purple button to turn off device / remove the suction. Then disconnect the tubing from the pump. The fixation strips should be stretched away from the skin and the dressing lifted at one corner and peeled back until it has been fully removed. 7. After removal, it is ok to shower daily using liquid dial soap and clean wash cloth, rinse and pat dry, and leave incision open to air dry. For any concerns regarding Prevena dressing, and or wounds, please contact Eliana Quinn, patient navigator at [phone] or notify the Cardiovascular Surgeons office at [phone]. Incentive spirometry Q1 hr x 10, while awake, also use acapella device hourly whole awake Sternal Breast Bone Precautions: NO pushing or pulling, ( pt must use sternal pillow to support chest with all activities and with coughing ( takes up to 3 months breast bone to heal ) Daily incision care: ok to shower daily, no tub bath. Wash all incisions with liquid dial soap, clean wash cloth to each site, rinse and pat dry. Observe for any signs of infection, such as drainage which is dark yellow, vargas, green or foul smelling. Immediately report to the surgeon any drainage from the chest incision, or legs, and for any abnormal drainage from the chest tube sites. Notify surgeon if any temp >101.5 degrees F. When specialty dressing removed/ or if you do not have one, continue to shower daily as above, then rinse and pat incision dry and paint with betadine daily x 5 days. Allow steri strips to fall off if you have any. Avoid lotions, creams, salves, oils, etc. for the first month Please see attached forms for additional instructions regarding post Open Heart specialty wound vacuum dressings. CLAUDETTE or Prevena , Dressing to be removed by Nursing staff on _09/13/[address] Gilliland patients , please obtain CBC, BMP, PA & Lat CXR in 2 weeks, results to Dr. Gilliland ( prescription will be given) ( ) (Tele: [phone]) , F/U appointment: as per DC instructions: PCP in 2 weeks, CV surgeon 2 weeks, Investment Sales Assistant 3-4 weeks For any questions regarding incisions/ dressing / meds / post op care or above Symptoms, Tuesday 8am-5pm Heart & Vascular Surgery Office ( Dr. Davila & Dr. Gilliland), After Hours / Nights (5pm -8am) Weekends and Holidays Please call [facility] Cardiac Intermediate Care Unit (CIC) Charge Nurse I have seen patient Cortes Berrios on 09/06/17. My clinical findings support the need for the requested home health care services because: Deconditioned w/ increased weakness I certify that my clinical findings support that this patient is homebound because: Post-op weakness Johana Hoffman Sep 06, 2017 13:31
--- NOTE | 2017-09-06 13:35 | PD.CAR.PN ---
CVT Progress Note Subjective/Hospital Course: 57-year-old white male, admitted with NSTEMI. Patient was in his usual state of health until about 5 days ago when he began experiencing a gradual onset of diffuse bilateral chest pain that was aching in nature. Pain was intermittent and did not respond to Tylenol nor Advil. Patient says that during the day the pain would, and self resolve but oddly enough at night when he would lay down and would come back stronger. Due to the persistence of his symptoms he decided come to the emergency department. Denies any nausea vomiting or lightheadedness fevers or chills. He thinks his left foot is showing very trace edema. In the emergency department the patient's troponin was elevated at 2.5. I independently reviewed EKG and see very mild ST segment depression in V4 V5 and V6 with flipped minimal T waves in V2. Patient says after he was given the nitroglycerin his chest pain resolved. He is noted to be very hypertensive in the emergency department with systolics over 190 and diastolics over 100. PMH: hypertension, HLP carotid US: Moderate plaque around the carotid bifurcations bilaterally with findings most characteristic of carotid stenosis in the 50-60% range bilaterally / will need out pt follow up 09/06 pt developed chest pain 10/ this am , and was emergently taken to OR Objective: Vital Signs Date Time Temp Pulse Resp B/P (MAP) Pulse Ox O2 Delivery O2 Flow Rate FiO2 09/06/17 07:00 89 09/06/17 07:00 98.1 92 16 140/86 (104) 94 09/06/17 03:59 85 129/76 09/06/17 03:00 97.9 82 18 129/76 (93) 94 09/05/17 23:00 82 09/05/17 23:00 98.0 78 20 138/81 (100) 94 09/05/17 22:00 80 132/80 09/05/17 21:00 90 145/83 09/05/17 19:00 84 09/05/17 19:00 98.7 88 16 138/86 (103) 96 09/05/17 18:00 89 09/05/17 17:00 93 09/05/17 16:00 81 16 140/88 (105) 97 09/05/17 16:00 104 09/05/17 15:00 82 09/05/17 15:00 98.9 82 16 144/83 (103) 96 09/05/17 15:00 100 09/05/17 14:00 101 09/05/17 13:51 90 16 135/84 (101) 96 Labs: Laboratory Tests Test 09/06/17 03:20 09/06/17 04:40 09/06/17 04:45 White Blood Count 11.2 TH/MM3 (4.0-11.0) Red Blood Count 4.17 MIL/MM3 (4.50-5.90) Hemoglobin 13.5 GM/DL (13.0-17.0) Hematocrit 38.9 % (39.0-51.0) Mean Corpuscular Volume 93.4 FL (80.0-100.0) Mean Corpuscular Hemoglobin 32.4 PG (27.0-34.0) Mean Corpuscular Hemoglobin Concent 34.7 % (32.0-36.0) Red Cell Distribution Width 13.0 % (11.6-17.2) Platelet Count 122 TH/MM3 (150-450) Mean Platelet Volume 9.8 FL (7.0-11.0) Neutrophils (%) (Auto) 75.2 % (16.0-70.0) Lymphocytes (%) (Auto) 13.0 % (9.0-44.0) Monocytes (%) (Auto) 10.8 % (0.0-8.0) Eosinophils (%) (Auto) 0.7 % (0.0-4.0) Basophils (%) (Auto) 0.3 % (0.0-2.0) Neutrophils # (Auto) 8.4 TH/MM3 (1.8-7.7) Lymphocytes # (Auto) 1.5 TH/MM3 (1.0-4.8) Monocytes # (Auto) 1.2 TH/MM3 (0-0.9) Eosinophils # (Auto) 0.1 TH/MM3 (0-0.4) Basophils # (Auto) 0.0 TH/MM3 (0-0.2) CBC Comment DIFF FINAL Differential Comment Activated Partial Thromboplast Time 27.9 SEC (24.3-30.1) Blood Urea Nitrogen 10 MG/DL (7-18) Creatinine 0.73 MG/DL (0.60-1.30) Random Glucose 113 MG/DL (74-106) Calcium Level 8.2 MG/DL (8.5-10.1) Sodium Level 137 MEQ/L (136-145) Potassium Level 3.3 MEQ/L (3.5-5.1) Chloride Level 103 MEQ/L (98-107) Carbon Dioxide Level 26.1 MEQ/L (21.0-32.0) Anion Gap 8 MEQ/L (5-15) Estimat Glomerular Filtration Rate 110 ML/MIN (>89) Urine Color YELLOW (YELLW/STRAW) Urine Turbidity CLEAR (CLEAR) Urine pH 5.5 (5.0-8.5) Urine Specific [place] 1.019 (1.002-1.035) Urine Protein NEG mg/dL (NEG-TRACE) Urine Glucose (UA) NEG mg/dL (NEG) Urine Ketones TRACE mg/dL (NEG) Urine Occult Blood NEG (NEG) Urine Nitrite NEG (NEG) Urine Bilirubin NEG (NEG) Urine Urobilinogen 2.0 MG/DL (LESS THAN Urine Leukocyte Esterase NEG (NEG) Urine RBC 1 /hpf (0-3) Urine WBC LESS THAN 1 /hpf (0-5) Urine Mucus FEW /lpf (OCC) Microscopic Urinalysis Comment CULT NOT INDICATED Nasal Screen MRSA (PCR) MRSA NOT DETECTED (NOT Result Diagram: [id number]/[id number] Johana Hoffman Sep 06, 2017 13:34
[2017-09-06] MEDS ORDERED: LACTATED RINGER'S 1000 ML INJ 500 ML IV PRN (14:09)
[2017-09-06] MEDS ORDERED: ACETAMINOPHEN 325 MG TAB PO PRN (14:15)
[2017-09-06] MEDS ORDERED: Post-op Orders (for Pharmacy) OTHER ONE (14:15)
[2017-09-06] MEDS ORDERED: ALBUMIN 5% INJ 250 ML IV PRN (14:15)
[2017-09-06] MEDS ORDERED: hydrALAZINE HCL 20 MG/ML VIAL IV PUSH PRN (14:15)
[2017-09-06] MEDS ORDERED: CALCIUM CHLORIDE 10% 1 GRAM/10 ML VIAL IV PUSH PRN (14:15)
[2017-09-06] MEDS ORDERED: CALCIUM CHLORIDE INJ 1 GM in SODIUM CHLORIDE 0.9% INJ 100 ML IV PRN (14:15)
[2017-09-06] MEDS ORDERED: POTASSIUM CHLOR 20 MEQ PREMIX 100 ML IV PRN ×3 (14:15)
[2017-09-06] MEDS ORDERED: INSULIN REGULAR (IV INFUSION) 100 UNITS in SODIUM CHLORIDE 0.9% INJ 99 ML IV PRN (14:15)
[2017-09-06] MEDS ORDERED: SODIUM BICARBONATE 8.4% SOLN 50 MEQ/50 ML VIAL IV PUSH PRN ×2 (14:15)
[2017-09-06] MEDS ORDERED: ACETAMINOPHEN 650 MG SUPP RECTAL PRN (14:15)
[2017-09-06] MEDS ORDERED: POTASSIUM CHLORIDE 20 MEQ CONTROLLED RELEASE TAB PO PRN ×2 (14:15)
[2017-09-06] MEDS ORDERED: RESP: RACEPINEPHRINE 2.25% 0.5 ML NEB NEB PRN ×2 (14:15→16:30)
[2017-09-06] MEDS ORDERED: ONDANSETRON HCL 4 MG/2 ML VIAL IV PUSH PRN (14:15)
[2017-09-06] MEDS ORDERED: DEXTROSE 50% IN WATER 50 ML VIAL(D50) IV PUSH PRN (14:15)
[2017-09-06] MEDS ORDERED: DEXMEDETOMIDINE INJ 200 MCG in SODIUM CHLORIDE 0.9% INJ 50 ML IV PRN (14:15)
[2017-09-06] MEDS ORDERED: MAGNESIUM SULFATE INJ 2 GM in SODIUM CHLORIDE 0.9% INJ 100 ML IV PRN ×4 (14:15)
[2017-09-06] MEDS ORDERED: RESP: ALBUTEROL 2.5 MG/IPRATROPIUM 0.5 MG NEB (PRN) NEB ×2 (14:15→16:30)
[2017-09-06] MEDS ORDERED: SUGAMMADEX SODIUM 200 MG/2 ML VIAL IV PUSH ONE (14:17)
--- NOTE | 2017-09-06 14:19 | PD.OP ---
cc: Yue Gilliland MD; Gaurang Golden DO Operative Report Date of Surgery: Sep 06, 2017 Preoperative Diagnosis: (1) Unstable angina (2) NSTEMI (non-ST elevated myocardial infarction) (3) CAD (coronary artery disease) Postoperative Diagnosis: same Procedure: Emergent CABG x 3 LANDON to LAD - good SVG to D1 - good SVG to OM1 - good EVH Anesthesia: Dr. Hale Surgeon: Yue Gilliland Mortician Investigator(s): DEEDEE Georges Operation and Findings: The risks, benefits, complications, treatment options, and expected outcomes were discussed with the patient. The possibilities of reaction to medication, pulmonary aspiration, perforation of viscus, bleeding, recurrent infection, the need for additional procedures, failure to diagnose a condition, and creating a complication requiring transfusion or operation were discussed with the patient. The patient concurred with the proposed plan, giving informed consent. The site of surgery properly noted/marked. The patient had chest pain refractory to IV NTG and heparin. The patient was taken to the Operating Room emergently, identified as Cortes Berrios and the procedure verified as CABG, EVH, EDIN. A Time Out was held and the above information confirmed. Standard monitoring lines and Layne catheter were placed. General anesthesia was induced. The patient was prepped and draped in a sterile fashion. A median sternotomy was performed and electrocautery was used to obtain hemostasis. The left internal mammary artery was procured as a pedicle from the 7th rib to the 1st rib in the usual manner. Simultaneously left greater saphenous vein was procured from the left leg using a minimally invasive endoscopic technique. The vein was prepared for anastomosis and the leg wound was irrigated and closed in 2 layers. The pericardium was opened and a pericardial sling was created using interrupted 0 silk sutures. The patient was heparinized for cardiopulmonary bypass and the distal mammary pedicle was instrumented for anastomosis. The heart was instrumented for cardiopulmonary bypass in the usual manner. Antegrade blood cardioplegia was employed. The patient was placed on cardiopulmonary bypass. An aortic cross-clamp was applied and the heart was arrested using cold blood cardioplegia. Antegrade cardioplegia was administered after he each anastomosis. After adequate arrest, the OM1 was opened with a [place] blade and found to be a 1.5 millimeter good target. Saphenous vein was approximated to the OM1 artery using a running 7 0 Prolene suture. The graft was measured for length and orientation and the proximal anastomosis was constructed to the ascending aorta using a running 5 0 Prolene suture after creating an aortotomy with a 5 millimeter punch. The 1st circumflex marginal artery was then opened with a [place] blade and found to be a 1.5 millimeter good target. Saphenous vein was approximated to the OM1 artery using a running 7 0 Prolene suture. The graft was measured for length and orientation and was suspended from the pericardium. The distal LAD was opened with a [place] blade and found to be a 1.5 millimeter good target. The left internal mammary artery was approximated to the LAD using a running 7 0 Prolene suture. The pedicle was attached to the epicardium using interrupted 5 0 silk suture. The patient was systemically rewarmed and received a hotshot dose of warm blood cardioplegia. The aorta was vented and the proximal anastomosis to the OM1 graft was accomplished using a running 5 0 Prolene suture after creating an aortotomy was a 5 millimeter punch. The cross -clamp was removed and all proximal and distal anastomoses were examined for hemostasis. The patient was weaned from cardiopulmonary bypass. Protamine was given. There was no adverse reaction. Decannulation was carried out without incident. Wound was checked for hemostasis which was obtained using electrocautery. A 36 [place] mediastinal and 32 [place] left pleural chest tubes were placed and secured to the skin with 0 silk suture. The sternum was closed with stainless steel wire. The fascia was closed with 1. PDS. The subcutaneous tissue was closed using a running 2-0 Vicryl suture. The skin was closed with 4- 0 Monocryl. Sterile dressings were placed. At the end of the operation, all sponge, instruments, and needle counts were correct. The patient was transferred to the CVICU in stable condition. Findings: good distal targets XC: 45 min CPB: 52 min Drains: mediastinal x 1 pleural x 1 Complications: none Disposition: to CVICU in stable condition Yue Gilliland MD Sep 06, 2017 14:19
[2017-09-06] MEDS: CLEVIDIPINE INJ 50 ML IV PRN ×2 (15:16→23:00)
[2017-09-06] MEDS: RESP: ALBUTEROL 2.5 MG/IPRATROPIUM 0.5 MG NEB (SCH) NEB ×2 (15:55→21:17)
[2017-09-06] MEDS: ACETAMINOPHEN 1000 MG/100 ML 100 ML IV SCH ×2 (16:20→20:17)
--- NOTE | 2017-09-06 16:25 | RADRPT ---
EXAM DATE/TIME: 09/06/2017 15:21 [facility] COMPARISON: CHEST SINGLE AP, September 04, 2017, 12:10. INDICATIONS : Post CABG. MEDICAL HISTORY : Hypercholesterolemia. Hypertension. SURGICAL HISTORY : CABG. Cardiac cath. ENCOUNTER: Initial ACUITY: 1 day PAIN SCORE: Non-responsive. LOCATION: Bilateral chest FINDINGS: A single view of the chest demonstrates postsurgical changes with left-sided thoracostomy tube, media stinal drain, nasogastric and endotracheal tubes all appropriate in position. Left subclavian central venous catheter with the tip at the junction of the left and right brachiocephalic veins. Elevation of the right hemidiaphragm with bibasilar atelectatic changes. No pneumothorax. Accounting for degree of inspiration, heart size is normal. Multiple intact median sternotomy wires. Osseous structures are intact with degenerative spurring of the dorsal spine. CONCLUSION: 1. Post surgical changes. Life support tubes all appear to be appropriate position. No pneumothorax. 2. Atelectatic changes most prominent above the left hemidiaphragm. Mild elevation right hemidiaphrag mDalton Timmons MD on September 06, 2017 at 16:20 Board Certified Radiologist. This report was verified electronically.
[2017-09-06] MEDS: METOPROLOL TARTRATE 5 MG/5 ML VIAL IV PUSH PRN (18:00)
[2017-09-06] MEDS ORDERED: METOPROLOL TARTRATE 5 MG/5 ML VIAL IV PUSH ONE (18:00)
[2017-09-06] MEDS: PRAVASTATIN SOD 40 MG TAB PO SCH (20:18)
[2017-09-06] MEDS: AMIODARONE 200 MG TAB PO SCH (20:18)
[2017-09-06] MEDS ORDERED: RESP: ALBUTEROL 2.5 MG/IPRATROPIUM 0.5 MG NEB (SCH) NEB (22:00)
[2017-09-06] MEDS: oxyCODONE/ACETAMINOPHEN 5 MG/325 MG TAB PO PRN (22:55)
[2017-09-07] VITALS (21 sets, daily range): BP systolic 106–141; BP diastolic 58–75; PULSE 57–110; RESP 18–20; TEMP 97.3–99.5; O2SAT 94–97
[2017-09-07] MEDS: METOPROLOL TARTRATE 5 MG/5 ML VIAL IV PUSH PRN ×2 (00:43→06:30)
[2017-09-07] MEDS: CLEVIDIPINE INJ 50 ML IV PRN ×2 (01:30→04:50)
[2017-09-07] MEDS: ACETAMINOPHEN 1000 MG/100 ML 100 ML IV SCH ×2 (03:38→08:49)
[2017-09-07] MEDS: RESP: ALBUTEROL 2.5 MG/IPRATROPIUM 0.5 MG NEB (SCH) NEB ×3 (04:16→20:10)
[2017-09-07 04:30] LABS: AUTOMATED NEUTROPHIL # 14.1 TH/MM3 (1.8-7.7); BASOPHIL % 0.1 % (0.0-2.0); HEMATOCRIT 39.1 % (39.0-51.0); HEMOGLOBIN 13.7 GM/DL (13.0-17.0); LYMPH % 7.5 % (9.0-44.0); LYMPHOCYTE # 1.3 TH/MM3 (1.0-4.8); MEAN CELL VOLUME 94.1 FL (80.0-100.0); MEAN CORPUSCULAR HEMOGLOBIN 32.9 PG (27.0-34.0); MONOCYTE # 1.5 TH/MM3 (0-0.9); NEUT % 83.4 % (16.0-70.0); PLATELET COUNT 106 TH/MM3 (150-450); RED BLOOD COUNT 4.15 MIL/MM3 (4.50-5.90); RED CELL DISTRIBUTION WIDTH 13.1 % (11.6-17.2); WHITE BLOOD COUNT 16.9 TH/MM3 (4.0-11.0)
--- NOTE | 2017-09-07 04:32 | RADRPT ---
EXAM DATE/TIME: 09/07/2017 03:28 [facility] COMPARISON: CHEST SINGLE AP, September 06, 2017, 15:21. INDICATIONS : Short of breath. MEDICAL HISTORY : Hypercholesterolemia. Hypertension. SURGICAL HISTORY : CABG. ENCOUNTER: Subsequent ACUITY: 1 week PAIN SCORE: 0/10 LOCATION: Bilateral chest FINDINGS: Left chest tube again noted and a mediastinal tube. Endotracheal tube and enteric tube have been cristino daniel. Patchy left basilar atelectatic changes are again seen. No evidence of pneumothorax. CONCLUSION: Left basilar and right basilar atelectasis. Giovanni Johnson MD on September 07, 2017 at 4:29 Board Certified Radiologist. This report was verified electronically.
[2017-09-07 04:51] LABS: BICARBONATE 25.5 MEQ/L (21.0-32.0); CALCIUM 7.9 MG/DL (8.5-10.1); CREATININE 0.66 MG/DL (0.60-1.30); MAGNESIUM 2.4 MG/DL (1.5-2.5)
[2017-09-07] MEDS: PANTOPRAZOLE SOD 40 MG DELAYED RELEASE TAB PO SCH (06:30)
[2017-09-07] MEDS: AMIODARONE 200 MG TAB PO SCH ×3 (06:30→21:25)
[2017-09-07] MEDS: ASPIRIN 81 MG CHEW TAB PO SCH (08:49)
[2017-09-07] MEDS: oxyCODONE/ACETAMINOPHEN 5 MG/325 MG TAB PO PRN ×4 (08:49→23:52)
[2017-09-07] MEDS: MUPIROCIN 2% OINT 1 APPLIC/GM SYR EACH NARE SCH (08:49)
[2017-09-07] MEDS: SODIUM CHLORIDE 0.9% FLUSH 10 ML FLUSH IV FLUSH SCH ×2 (08:49→21:00)
[2017-09-07] MEDS ORDERED: SOD PHOSPHATE/SOD BIPHOSPHATE (ADULT) ENEMA 133ML RECTAL PRN (09:00)
[2017-09-07] MEDS ORDERED: BISACODYL 10 MG SUPP RECTAL PRN (09:00)
[2017-09-07] MEDS ORDERED: GLUCAGON 1 MG/ML VIAL OTHER PRN (09:00)
[2017-09-07] MEDS ORDERED: DEXTROSE 50% IN WATER 50 ML VIAL(D50) IV PUSH PRN (09:00)
[2017-09-07] MEDS ORDERED: oxyCODONE/ACETAMINOPHEN 5 MG/325 MG TAB PO PRN (09:45)
--- NOTE | 2017-09-07 10:01 | RSPPFT ---
DATE OF PROCEDURE: 09/05/17 COMMENTS: Spirometry with FVC of 2.8 predicted 4.6, FEV1 of 2.2 predicted 3.7, FEV1/FVC ratio 79% predicted 80%. 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
[2017-09-07] MEDS: MULTIVITAMINS/MINERALS THERAPEUTIC TAB PO SCH (10:29)
[2017-09-07] MEDS: METOPROLOL TARTRATE 25 MG TAB PO SCH ×2 (10:29→21:25)
[2017-09-07] MEDS: MAGNESIUM HYDROXIDE SUSP 30 ML CUP PO SCH (10:30)
[2017-09-07] MEDS: amLODIPine BESYLATE 5 MG TAB PO SCH (10:30)
[2017-09-07] MEDS: TAMSULOSIN HCL 0.4 MG CAP PO SCH (10:41)
[2017-09-07] MEDS: INSULIN ASPART SUPPLEMENTAL SCALE SQ SCH ×4 (10:41→21:26)
--- NOTE | 2017-09-07 14:21 | PD.CARD.PN ---
Subjective Subjective Remarks Doing well post surgery Up and ambulating Objective Medications Current Medications Medications (Trade) Dose Ordered Sig/Dejon Route Start Time Stop Time Status Last Admin (Tylenol) 650 mg Q4H PRN PO 09/04/17 20:00 (NS Flush) 2 ml BID IV FLUSH 09/06/17 21:00 09/07/17 08:49 (NS Flush) 2 ml UNSCH PRN IV FLUSH 09/06/17 14:15 Lactated Ringer's 500 ml @ 500 mls/hr Q1H PRN IV 09/06/17 14:09 Cefazolin Sodium 1000 mg/Sodium Chloride 100 ml @ 200 mls/hr Q8H IV 09/06/17 20:00 09/08/17 04:29 09/07/17 03:38 (Aspirin Chew) 81 mg DAILY PO 09/07/17 09:00 09/07/17 08:49 (Protonix) 40 mg DAILY@06 PO 09/07/17 06:00 09/07/17 06:30 (Cordarone) 400 mg Q8HR PO 09/06/17 22:00 09/07/17 06:30 (Percocet 5-325 Mg) 1 tab Q3H PRN PO 09/06/17 14:15 09/07/17 08:49 (Zofran Inj) 4 mg Q6H PRN IV PUSH 09/06/17 14:15 (Apresoline Inj) 10 mg Q4H PRN IV PUSH 09/06/17 14:15 (Duoneb Neb) 1 ampule Q2HR NEB PRN NEB 09/06/17 14:15 (Duoneb Neb) 1 ampule Q6HR WHILE AWAKE NEB NEB 09/07/17 14:00 09/09/17 13:59 09/07/17 12:46 (Colace) 100 mg BID PO 09/07/17 21:00 (Theragran M Tab) 1 tab DAILY PO 09/07/17 09:30 09/07/17 10:29 (Milk Of Magnesia Liq) 30 ml DAILY PO 09/07/17 09:30 09/07/17 10:30 (Dulcolax Supp) 10 mg UNSCH PRN RECTAL 09/07/17 09:00 (Miralax) 17 gm DAILY PO 09/08/17 09:00 (Senokot) 8.6 mg HS PO 09/07/17 21:00 (Fleets Enema (Adult)) 118 ml UNSCH PRN RECTAL 09/07/17 09:00 (Lopressor) 25 mg BID PO 09/07/17 09:30 09/07/17 10:29 (NovoLOG SUPPLEMENTAL SCALE) 1 02,06,10,14,18,22 SQ 09/07/17 10:00 09/08/17 09:59 09/07/17 10:41 (D50w (Vial) Inj) 50 ml UNSCH PRN IV PUSH 09/07/17 09:00 (Glucagon Inj) 1 mg UNSCH PRN OTHER 09/07/17 09:00 (Norvasc) 5 mg DAILY PO 09/07/17 11:00 09/07/17 10:30 (Flomax) 0.4 mg DAILY PO 09/07/17 09:30 09/07/17 10:41 (NovoLOG SUPPLEMENTAL SCALE) 1 ACHS SQ 09/08/17 12:00 (Percocet 5-325 Mg) 2 tab Q4H PRN PO 09/07/17 09:45 (Toradol Inj) 15 mg Q6H PRN IV PUSH 09/07/17 09:45 09/09/17 09:44 Vital Signs / I&O Vital Signs Date Time Temp Pulse Resp B/P (MAP) Pulse Ox O2 Delivery O2 Flow Rate FiO2 09/07/17 12:46 94 21 09/07/17 12:00 97.7 89 20 123/71 (88) 95 Arterial Line 09/07/17 12:00 89 09/07/17 12:00 95 Nasal Cannula 2.00 09/07/17 07:22 18 09/07/17 07:22 18 09/07/17 07:00 94 09/07/17 07:00 98.0 94 18 135/64 (87) 97 141/75 (97) 09/07/17 07:00 97 Nasal Cannula 3.00 09/07/17 04:50 93 127/61 09/07/17 04:00 93 127/61 09/07/17 03:00 96 Nasal Cannula 3.00 09/07/17 03:00 99.5 110 18 129/73 (91) 96 127/63 (84) 09/07/17 03:00 106 09/07/17 02:00 95 127/62 09/07/17 01:55 18 09/07/17 01:30 93 120/63 09/07/17 01:00 93 120/63 09/07/17 00:00 94 149/73 09/06/17 23:00 97.4 106 18 149/88 (108) 93 150/75 (100) 09/06/17 23:00 93 Nasal Cannula 4.00 09/06/17 23:00 106 150/75 09/06/17 23:00 106 150/75 09/06/17 23:00 106 09/06/17 21:17 97 Nasal Cannula 3.00 09/06/17 21:00 112 158/76 09/06/17 19:00 101 09/06/17 19:00 96 Nasal Cannula 4.00 09/06/17 19:00 98.4 101 18 145/93 (110) 95 151/78 (102) 09/06/17 19:00 101 151/78 09/06/17 18:00 98 Nasal Cannula 4.00 Humidified 09/06/17 17:40 97 Nasal Cannula 6 09/06/17 17:40 97 Nasal Cannula 6.00 09/06/17 17:30 95 Nasal Cannula 6.00 09/06/17 15:55 97 80 09/06/17 15:16 87 145/73 09/06/17 15:00 60 09/06/17 15:00 98.6 77 10 135/86 (102) 96 139/76 (97) 09/06/17 15:00 88 I/O 09/06/17 09/06/17 09/06/17 09/07/17 09/07/17 09/07/17 07:00 15:00 23:00 07:00 15:00 23:00 Intake Total 1108 ml 4250 ml 410 ml 684 ml 100 ml Output Total 850 ml 1900 ml 740 ml 1205 ml Balance 258 ml 2350 ml -330 ml -521 ml 100 ml Intake Oral 480 ml 300 ml IV Total 628 ml 410 ml 384 ml 100 ml Autotransfusion 750 ml Other 3500 ml Output Urine Total 850 ml 400 ml 600 ml 925 ml Gastric Drainage Total 0 ml Chest Tube Drainage Total 140 ml 280 ml Estimated Blood Loss 1500 ml # Bowel Movements 0 0 0 Physical Exam GENERAL: NAD, AAOx3 SKIN: Warm and dry. HEAD: Atraumatic. Normocephalic. EYES: Pupils equal and round. No scleral icterus. No injection or drainage. ENT: No nasal bleeding or discharge. Mucous membranes pink and moist. NECK: Trachea midline. No JVD. CARDIOVASCULAR: Regular rate and rhythm. Sternotomy covered, clean and dry RESPIRATORY: No accessory muscle use. Clear to auscultation. Breath sounds equal bilaterally. GASTROINTESTINAL: Abdomen soft, non-tender, nondistended. Hepatic and splenic margins not palpable. MUSCULOSKELETAL: Extremities without clubbing, cyanosis, or edema. No obvious deformities. NEUROLOGICAL: Awake and alert. No obvious cranial nerve deficits. Motor grossly within normal limits. Five out of 5 muscle strength in the arms and legs. Normal speech. PSYCHIATRIC: Appropriate mood and affect; insight and judgment normal. Laboratory Laboratory Tests Test 09/07/17 03:20 09/07/17 03:30 Blood Urea Nitrogen 11 MG/DL Creatinine 0.66 MG/DL Random Glucose 121 MG/DL Calcium Level 7.9 MG/DL Magnesium Level 2.4 MG/DL Sodium Level 138 MEQ/L Potassium Level 3.9 MEQ/L Chloride Level 105 MEQ/L Carbon Dioxide Level 25.5 MEQ/L Anion Gap 8 MEQ/L Estimat Glomerular Filtration Rate 124 ML/MIN White Blood Count 16.9 TH/MM3 Red Blood Count 4.15 MIL/MM3 Hemoglobin 13.7 GM/DL Hematocrit 39.1 % Mean Corpuscular Volume 94.1 FL Mean Corpuscular Hemoglobin 32.9 PG Mean Corpuscular Hemoglobin Concent 35.0 % Red Cell Distribution Width 13.1 % Platelet Count 106 TH/MM3 Mean Platelet Volume 10.0 FL Neutrophils (%) (Auto) 83.4 % Lymphocytes (%) (Auto) 7.5 % Monocytes (%) (Auto) 9.0 % Eosinophils (%) (Auto) 0.0 % Basophils (%) (Auto) 0.1 % Neutrophils # (Auto) 14.1 TH/MM3 Lymphocytes # (Auto) 1.3 TH/MM3 Monocytes # (Auto) 1.5 TH/MM3 Eosinophils # (Auto) 0.0 TH/MM3 Basophils # (Auto) 0.0 TH/MM3 CBC Comment DIFF FINAL Differential Comment Imaging Last 24 hours Impressions Chest X-Ray 09/07/17 0500 Signed Impressions: Service Date/Time: Thursday, September 07, 2017 03:28 - CONCLUSION: Left basilar and right basilar atelectasis. Giovanni Johnson MD Assessment and Plan Problem List: (1) CAD (coronary artery disease) ICD Codes: I25.10 - Atherosclerotic heart disease of [place] coronary artery without angina pectoris (2) Unstable angina ICD Codes: I20.0 - Unstable angina (3) NSTEMI (non-ST elevated myocardial infarction) ICD Codes: I21.4 - Non-ST elevation (NSTEMI) myocardial infarction Status: Acute (4) S/P CABG (coronary artery bypass graft) ICD Codes: Z95.1 - Presence of aortocoronary bypass graft Assessment and Plan 1) CAD/NSTEMI s/p CABGx3 POD #1 LANDON to LAD SVG to D1 SVG to OM1 2) Con't ASA/BB/Amio Add statin therapy 3) Con't ambulation 4) How/when getting back to [facility] per CT surgery Problem Qualifiers (1) CAD (coronary artery disease): Qualified Codes: I25.110 - Atherosclerotic heart disease of [place] coronary artery with unstable angina pectoris Gaurang Golden DO Sep 07, 2017 14:21
--- NOTE | 2017-09-07 15:30 | PD.CAR.PN ---
CVT Progress Note Subjective/Hospital Course: 57-year-old white male, admitted with NSTEMI. Patient was in his usual state of health until about 5 days ago when he began experiencing a gradual onset of diffuse bilateral chest pain that was aching in nature. Pain was intermittent and did not respond to Tylenol nor Advil. Patient says that during the day the pain would, and self resolve but oddly enough at night when he would lay down and would come back stronger. Due to the persistence of his symptoms he decided come to the emergency department. Denies any nausea vomiting or lightheadedness fevers or chills. He thinks his left foot is showing very trace edema. In the emergency department the patient's troponin was elevated at 2.5. I independently reviewed EKG and see very mild ST segment depression in V4 V5 and V6 with flipped minimal T waves in V2. Patient says after he was given the nitroglycerin his chest pain resolved. He is noted to be very hypertensive in the emergency department with systolics over 190 and diastolics over 100. PMH: hypertension, HLP carotid US: Moderate plaque around the carotid bifurcations bilaterally with findings most characteristic of carotid stenosis in the 50-60% range bilaterally / will need out pt follow up 09/06 pt developed chest pain 05/03 this am , and was emergently taken to OR surgery: Emergent CABG x 3, LANDON to LAD - good, SVG to D1 - good, SVG to OM1 - good, L EVH crystalloid 3500cc, cell saver 750cc, 1500cc EBL 09/07 up in chair, on nasal cannula weaned off cleviprex, started on BB , and norvasc on amiodarone , statin , ASA family requesting pt to travel back to [place] via air ambulance once cleared by our service Objective: GENERAL: A&O x 3 SKIN: Warm and dry. prevena dressing to chest , nick wrap to left leg HEAD: Normocephalic. EYES: No scleral icterus. No injection or drainage. NECK: Supple, trachea midline. No JVD or lymphadenopathy. CARDIOVASCULAR: Regular rate and rhythm without murmurs, gallops, or rubs. RESPIRATORY: Breath sounds equal bilaterally. No accessory muscle use. GASTROINTESTINAL: Abdomen soft, non-tender, nondistended. MUSCULOSKELETAL: No cyanosis, or edema. BACK: Nontender without obvious deformity. No CVA tenderness. Vital Signs Date Time Temp Pulse Resp B/P (MAP) Pulse Ox O2 Delivery O2 Flow Rate FiO2 09/07/17 12:46 94 21 09/07/17 12:00 97.7 89 20 123/71 (88) 95 Arterial Line 09/07/17 12:00 89 09/07/17 12:00 95 Nasal Cannula 2.00 09/07/17 07:22 18 09/07/17 07:22 18 09/07/17 07:00 94 09/07/17 07:00 98.0 94 18 135/64 (87) 97 141/75 (97) 09/07/17 07:00 97 Nasal Cannula 3.00 09/07/17 04:50 93 127/61 09/07/17 04:00 93 127/61 09/07/17 03:00 96 Nasal Cannula 3.00 09/07/17 03:00 99.5 110 18 129/73 (91) 96 127/63 (84) 09/07/17 03:00 106 09/07/17 02:00 95 127/62 09/07/17 01:55 18 09/07/17 01:30 93 120/63 09/07/17 01:00 93 120/63 09/07/17 00:00 94 149/73 09/06/17 23:00 97.4 106 18 149/88 (108) 93 150/75 (100) 09/06/17 23:00 93 Nasal Cannula 4.00 09/06/17 23:00 106 150/75 09/06/17 23:00 106 150/75 09/06/17 23:00 106 09/06/17 21:17 97 Nasal Cannula 3.00 09/06/17 21:00 112 158/76 09/06/17 19:00 101 09/06/17 19:00 96 Nasal Cannula 4.00 09/06/17 19:00 98.4 101 18 145/93 (110) 95 151/78 (102) 09/06/17 19:00 101 151/78 09/06/17 18:00 98 Nasal Cannula 4.00 Humidified 09/06/17 17:40 97 Nasal Cannula 6 09/06/17 17:40 97 Nasal Cannula 6.00 09/06/17 17:30 95 Nasal Cannula 6.00 09/06/17 15:55 97 80 Labs: Laboratory Tests Test 09/07/17 03:30 White Blood Count 16.9 TH/MM3 (4.0-11.0) Red Blood Count 4.15 MIL/MM3 (4.50-5.90) Hemoglobin 13.7 GM/DL (13.0-17.0) Hematocrit 39.1 % (39.0-51.0) Mean Corpuscular Volume 94.1 FL (80.0-100.0) Mean Corpuscular Hemoglobin 32.9 PG (27.0-34.0) Mean Corpuscular Hemoglobin Concent 35.0 % (32.0-36.0) Red Cell Distribution Width 13.1 % (11.6-17.2) Platelet Count 106 TH/MM3 (150-450) Mean Platelet Volume 10.0 FL (7.0-11.0) Neutrophils (%) (Auto) 83.4 % (16.0-70.0) Lymphocytes (%) (Auto) 7.5 % (9.0-44.0) Monocytes (%) (Auto) 9.0 % (0.0-8.0) Eosinophils (%) (Auto) 0.0 % (0.0-4.0) Basophils (%) (Auto) 0.1 % (0.0-2.0) Neutrophils # (Auto) 14.1 TH/MM3 (1.8-7.7) Lymphocytes # (Auto) 1.3 TH/MM3 (1.0-4.8) Monocytes # (Auto) 1.5 TH/MM3 (0-0.9) Eosinophils # (Auto) 0.0 TH/MM3 (0-0.4) Basophils # (Auto) 0.0 TH/MM3 (0-0.2) CBC Comment DIFF FINAL Differential Comment Result Diagram: 09/07/17 0330 09/07/17 0320 Telemetry: NSR (1) CAD (coronary artery disease) (2) Unstable angina (3) NSTEMI (non-ST elevated myocardial infarction) (4) S/P CABG (coronary artery bypass graft) Plan: ASA, statin BB , amiodarone pulm toileting OOB, ambulate CM to eval for transfer back to [place]/ [facility] accepting hospital and MD and cleared by our service Problem Qualifiers (1) CAD (coronary artery disease): Qualified Codes: I25.110 - Atherosclerotic heart disease of [place] coronary artery with unstable angina pectoris Johana Hoffman Sep 07, 2017 15:30
[2017-09-07] MEDS: KETOROLAC TROMETHAMINE 30 MG/ML (IVP) VIAL IV PUSH PRN (16:13)
[2017-09-07] MEDS: SODIUM CHLORIDE 0.9% FLUSH 10 ML FLUSH IV FLUSH PRN (16:14)
--- NOTE | 2017-09-07 21:04 | EKG ---
Date Performed: 09/07/2017 Time Performed: 05:14:02 PTAGE: 57 years EKG: CONSIDER ACUTE ST ELEVATION IA Sinus rhythm Possible inferior infarct - age undetermined Lateral ST elevation, CONSIDER ACUTE INFARCT Abnormal E CG PREVIOUS TRACING : 09/05/2017 04.28 Compared to prior tracing, ST ABNORMALITY IS NEW DOCTOR: Chucho Mcgregor Interpretating Date/Time 09/07/2017 21:02:55
[2017-09-07] MEDS: SENNOSIDES 8.6 MG TAB PO SCH (21:25)
[2017-09-07] MEDS: ATORVASTATIN 40 MG TAB PO SCH (21:25)
[2017-09-07] MEDS: DOCUSATE SODIUM 100 MG CAP PO SCH (21:25)
[2017-09-08] VITALS (29 sets, daily range): BP systolic 105–118; BP diastolic 62–71; PULSE 76–96; RESP 16–20; TEMP 97.4–98; O2SAT 92–99
[2017-09-08] MEDS: INSULIN ASPART SUPPLEMENTAL SCALE SQ SCH ×5 (02:00→21:12)
[2017-09-08 05:04] LABS: AUTOMATED NEUTROPHIL # 8.4 TH/MM3 (1.8-7.7); BASOPHIL % 0.1 % (0.0-2.0); EOSINOPHIL # 0.1 TH/MM3 (0-0.4); EOSINOPHIL % 0.9 % (0.0-4.0); HEMATOCRIT 30.8 % (39.0-51.0); HEMOGLOBIN 10.5 GM/DL (13.0-17.0); LYMPH % 17.2 % (9.0-44.0); MEAN CORPUSCULAR HEMOGLOBIN 32.4 PG (27.0-34.0); MEAN CORPUSCULAR HGB CONC 34.1 % (32.0-36.0); MEAN PLATELET VOLUME 9.5 FL (7.0-11.0); MONO % 10.7 % (0.0-8.0); MONOCYTE # 1.3 TH/MM3 (0-0.9); NEUT % 71.1 % (16.0-70.0); PLATELET COUNT 100 TH/MM3 (150-450); RED BLOOD COUNT 3.25 MIL/MM3 (4.50-5.90); RED CELL DISTRIBUTION WIDTH 13.3 % (11.6-17.2); WHITE BLOOD COUNT 11.8 TH/MM3 (4.0-11.0)
[2017-09-08 05:35] LABS: BICARBONATE 28.4 MEQ/L (21.0-32.0); CALCIUM 7.9 MG/DL (8.5-10.1); CREATININE 0.78 MG/DL (0.60-1.30); MAGNESIUM 2.8 MG/DL (1.5-2.5)
[2017-09-08] MEDS: PANTOPRAZOLE SOD 40 MG DELAYED RELEASE TAB PO SCH (05:44)
[2017-09-08] MEDS: AMIODARONE 200 MG TAB PO SCH ×3 (05:44→21:10)
[2017-09-08] MEDS: oxyCODONE/ACETAMINOPHEN 5 MG/325 MG TAB PO PRN ×2 (05:45→09:23)
[2017-09-08] MEDS: RESP: ALBUTEROL 2.5 MG/IPRATROPIUM 0.5 MG NEB (SCH) NEB ×3 (07:32→21:50)
[2017-09-08] MEDS: MAGNESIUM HYDROXIDE SUSP 30 ML CUP PO SCH (09:21)
[2017-09-08] MEDS: DOCUSATE SODIUM 100 MG CAP PO SCH ×2 (09:22→21:10)
[2017-09-08] MEDS: ASPIRIN 81 MG CHEW TAB PO SCH (09:22)
[2017-09-08] MEDS: MULTIVITAMINS/MINERALS THERAPEUTIC TAB PO SCH (09:22)
[2017-09-08] MEDS: POLYETHYLENE GLYCOL 17 GM PKG PO SCH (09:22)
[2017-09-08] MEDS: amLODIPine BESYLATE 5 MG TAB PO SCH (09:22)
[2017-09-08] MEDS: TAMSULOSIN HCL 0.4 MG CAP PO SCH (09:22)
[2017-09-08] MEDS ORDERED: POTASSIUM CHLORIDE 8 MEQ CONTROLLED RELEASE TAB PO ONE (10:15)
[2017-09-08] MEDS ORDERED: FUROSEMIDE 40 MG/4 ML VIAL IV PUSH ONE (10:15)
[2017-09-08] MEDS: SODIUM CHLORIDE 0.9% FLUSH 10 ML FLUSH IV FLUSH SCH ×2 (10:16→21:12)
--- NOTE | 2017-09-08 10:20 | PD.CAR.PN ---
CVT Progress Note Subjective/Hospital Course: 57-year-old white male, admitted with NSTEMI. Patient was in his usual state of health until about 5 days ago when he began experiencing a gradual onset of diffuse bilateral chest pain that was aching in nature. Pain was intermittent and did not respond to Tylenol nor Advil. Patient says that during the day the pain would, and self resolve but oddly enough at night when he would lay down and would come back stronger. Due to the persistence of his symptoms he decided come to the emergency department. Denies any nausea vomiting or lightheadedness fevers or chills. He thinks his left foot is showing very trace edema. In the emergency department the patient's troponin was elevated at 2.5. I independently reviewed EKG and see very mild ST segment depression in V4 V5 and V6 with flipped minimal T waves in V2. Patient says after he was given the nitroglycerin his chest pain resolved. He is noted to be very hypertensive in the emergency department with systolics over 190 and diastolics over 100. PMH: hypertension, HLP carotid US: Moderate plaque around the carotid bifurcations bilaterally with findings most characteristic of carotid stenosis in the 50-60% range bilaterally / will need out pt follow up 09/06 pt developed chest pain 05/03 this am , and was emergently taken to OR surgery: Emergent CABG x 3, LANDON to LAD - good, SVG to D1 - good, SVG to OM1 - good, L EVH crystalloid 3500cc, cell saver 750cc, 1500cc EBL 09/07 up in chair, on nasal cannula weaned off cleviprex, started on BB , and norvasc on amiodarone , statin , ASA family requesting pt to travel back to [place] via air ambulance once cleared by our service 09/08 remains in NSR occ PAC rate 96/ will increase BB / continue amiodarone gentle diuresis re-eval later today to remove chest tube/ drained 130cc/ last night and 100cc this am Objective: GENERAL: A&O x 3 SKIN: Warm and dry. prevena dressing to chest , incision intact to leg HEAD: Normocephalic. EYES: No scleral icterus. No injection or drainage. NECK: Supple, trachea midline. No JVD or lymphadenopathy. CARDIOVASCULAR: Regular rate and rhythm without murmurs, gallops, or rubs. RESPIRATORY: Breath sounds equal bilaterally. No accessory muscle use. few basilar crackles / chest tube to wall suction, no air leak GASTROINTESTINAL: Abdomen soft, non-tender, nondistended. MUSCULOSKELETAL: No cyanosis, or edema. BACK: Nontender without obvious deformity. No CVA tenderness. Vital Signs Date Time Temp Pulse Resp B/P (MAP) Pulse Ox O2 Delivery O2 Flow Rate FiO2 09/08/17 08:00 97.4 96 20 118/63 (81) 95 09/08/17 08:00 95 Room Air 09/08/17 08:00 96 09/08/17 07:32 99 21 09/08/17 06:02 91 09/08/17 05:55 91 09/08/17 04:32 86 09/08/17 03:50 Room Air 09/08/17 03:50 98.0 91 18 114/67 (83) 94 09/08/17 03:31 78 09/08/17 02:43 80 09/08/17 01:15 76 09/08/17 00:00 94 09/07/17 23:20 98.4 102 19 139/67 (91) 97 09/07/17 23:20 Room Air 09/07/17 23:00 91 09/07/17 22:00 98 09/07/17 21:00 94 09/07/17 20:10 94 21 09/07/17 20:00 92 09/07/17 19:40 98.1 92 20 109/58 (75) 95 09/07/17 19:40 Room Air 09/07/17 19:20 92 09/07/17 18:00 94 09/07/17 17:00 84 09/07/17 16:00 86 09/07/17 15:45 97.3 88 18 106/63 (77) 96 09/07/17 15:45 95 Room Air 09/07/17 15:45 87 09/07/17 15:00 80 09/07/17 14:00 82 09/07/17 13:00 80 09/07/17 12:46 94 21 09/07/17 12:00 97.7 89 20 123/71 (88) 95 Arterial Line 09/07/17 12:00 89 09/07/17 12:00 95 Nasal Cannula 2.00 09/07/17 11:00 92 Labs: Laboratory Tests Test 09/08/17 04:16 White Blood Count 11.8 TH/MM3 (4.0-11.0) Red Blood Count 3.25 MIL/MM3 (4.50-5.90) Hemoglobin 10.5 GM/DL (13.0-17.0) Hematocrit 30.8 % (39.0-51.0) Mean Corpuscular Volume 95.0 FL (80.0-100.0) Mean Corpuscular Hemoglobin 32.4 PG (27.0-34.0) Mean Corpuscular Hemoglobin Concent 34.1 % (32.0-36.0) Red Cell Distribution Width 13.3 % (11.6-17.2) Platelet Count 100 TH/MM3 (150-450) Mean Platelet Volume 9.5 FL (7.0-11.0) Neutrophils (%) (Auto) 71.1 % (16.0-70.0) Lymphocytes (%) (Auto) 17.2 % (9.0-44.0) Monocytes (%) (Auto) 10.7 % (0.0-8.0) Eosinophils (%) (Auto) 0.9 % (0.0-4.0) Basophils (%) (Auto) 0.1 % (0.0-2.0) Neutrophils # (Auto) 8.4 TH/MM3 (1.8-7.7) Lymphocytes # (Auto) 2.0 TH/MM3 (1.0-4.8) Monocytes # (Auto) 1.3 TH/MM3 (0-0.9) Eosinophils # (Auto) 0.1 TH/MM3 (0-0.4) Basophils # (Auto) 0.0 TH/MM3 (0-0.2) CBC Comment DIFF FINAL Differential Comment Blood Urea Nitrogen 21 MG/DL (7-18) Creatinine 0.78 MG/DL (0.60-1.30) Random Glucose 125 MG/DL (74-106) Calcium Level 7.9 MG/DL (8.5-10.1) Magnesium Level 2.8 MG/DL (1.5-2.5) Sodium Level 135 MEQ/L (136-145) Potassium Level 4.5 MEQ/L (3.5-5.1) Chloride Level 101 MEQ/L (98-107) Carbon Dioxide Level 28.4 MEQ/L (21.0-32.0) Anion Gap 6 MEQ/L (5-15) Estimat Glomerular Filtration Rate 102 ML/MIN (>89) Result Diagram: 09/08/1741509/08/17415 Telemetry: NSR with PAC's (1) CAD (coronary artery disease) (2) Unstable angina (3) NSTEMI (non-ST elevated myocardial infarction) (4) S/P CABG (coronary artery bypass graft) Plan: ASA, statin increase BB , amiodarone gentle diuresis pulm toileting / on room air OOB, ambulate CM to eval for transfer back to [place]/ once accepting hospital and MD and cleared by our service Problem Qualifiers (1) CAD (coronary artery disease): Qualified Codes: I25.110 - Atherosclerotic heart disease of [place] coronary artery with unstable angina pectoris Johana Hoffman Sep 08, 2017 10:20
--- NOTE | 2017-09-08 11:16 | PD.CARD.PN ---
Subjective Subjective Remarks Doing well post surgery Up and ambulating Objective Medications Current Medications Medications (Trade) Dose Ordered Sig/Dejon Route Start Time Stop Time Status Last Admin (Tylenol) 650 mg Q4H PRN PO 09/04/17 20:00 (NS Flush) 2 ml BID IV FLUSH 09/06/17 21:00 09/08/17 10:16 (NS Flush) 2 ml UNSCH PRN IV FLUSH 09/06/17 14:15 09/07/17 16:14 Lactated Ringer's 500 ml @ 500 mls/hr Q1H PRN IV 09/06/17 14:09 (Aspirin Chew) 81 mg DAILY PO 09/07/17 09:00 09/08/17 09:22 (Protonix) 40 mg DAILY@06 PO 09/07/17 06:00 09/08/17 05:44 (Cordarone) 400 mg Q8HR PO 09/06/17 22:00 09/08/17 05:44 (Percocet 5-325 Mg) 1 tab Q3H PRN PO 09/06/17 14:15 09/08/17 09:23 (Zofran Inj) 4 mg Q6H PRN IV PUSH 09/06/17 14:15 (Apresoline Inj) 10 mg Q4H PRN IV PUSH 09/06/17 14:15 (Duoneb Neb) 1 ampule Q2HR NEB PRN NEB 09/06/17 14:15 (Duoneb Neb) 1 ampule Q6HR WHILE AWAKE NEB NEB 09/07/17 14:00 09/09/17 13:59 09/08/17 07:32 (Colace) 100 mg BID PO 09/07/17 21:00 09/08/17 09:22 (Theragran M Tab) 1 tab DAILY PO 09/07/17 09:30 09/08/17 09:22 (Milk Of Magnesia Liq) 30 ml DAILY PO 09/07/17 09:30 09/08/17 09:21 (Dulcolax Supp) 10 mg UNSCH PRN RECTAL 09/07/17 09:00 (Miralax) 17 gm DAILY PO 09/08/17 09:00 09/08/17 09:22 (Senokot) 8.6 mg HS PO 09/07/17 21:00 09/07/17 21:25 (Fleets Enema (Adult)) 118 ml UNSCH PRN RECTAL 09/07/17 09:00 (D50w (Vial) Inj) 50 ml UNSCH PRN IV PUSH 09/07/17 09:00 (Glucagon Inj) 1 mg UNSCH PRN OTHER 09/07/17 09:00 (Norvasc) 5 mg DAILY PO 09/07/17 11:00 09/08/17 09:22 (Flomax) 0.4 mg DAILY PO 09/07/17 09:30 09/08/17 09:22 (NovoLOG SUPPLEMENTAL SCALE) 1 ACHS SQ 09/08/17 12:00 (Percocet 5-325 Mg) 2 tab Q4H PRN PO 09/07/17 09:45 (Toradol Inj) 15 mg Q6H PRN IV PUSH 09/07/17 09:45 09/09/17 09:44 09/07/17 16:13 (Lipitor) 40 mg HS PO 09/07/17 21:00 09/07/17 21:25 (Lopressor) 25 mg TID PO 09/08/17 13:00 Vital Signs / I&O Vital Signs Date Time Temp Pulse Resp B/P (MAP) Pulse Ox O2 Delivery O2 Flow Rate FiO2 09/08/17 08:00 97.4 96 20 118/63 (81) 95 09/08/17 08:00 95 Room Air 09/08/17 08:00 96 09/08/17 07:32 99 21 09/08/17 06:02 91 09/08/17 05:55 91 09/08/17 04:32 86 09/08/17 03:50 Room Air 09/08/17 03:50 98.0 91 18 114/67 (83) 94 09/08/17 03:31 78 09/08/17 02:43 80 09/08/17 01:15 76 09/08/17 00:00 94 09/07/17 23:20 98.4 102 19 139/67 (91) 97 09/07/17 23:20 Room Air 09/07/17 23:00 91 09/07/17 22:00 98 09/07/17 21:00 94 09/07/17 20:10 94 21 09/07/17 20:00 92 09/07/17 19:40 98.1 92 20 109/58 (75) 95 09/07/17 19:40 Room Air 09/07/17 19:20 92 09/07/17 18:00 94 09/07/17 17:00 84 09/07/17 16:00 86 09/07/17 15:45 97.3 88 18 106/63 (77) 96 09/07/17 15:45 95 Room Air 09/07/17 15:45 87 09/07/17 15:00 80 09/07/17 14:00 82 09/07/17 13:00 80 09/07/17 12:46 94 21 09/07/17 12:00 97.7 89 20 123/71 (88) 95 Arterial Line 09/07/17 12:00 89 09/07/17 12:00 95 Nasal Cannula 2.00 I/O 09/07/17 09/07/17 09/07/17 09/08/17 09/08/17 09/08/17 07:00 15:00 23:00 07:00 15:00 23:00 Intake Total 684 ml 100 ml 1000 ml 580 ml Output Total 1205 ml 530 ml 530 ml Balance -521 ml 100 ml 470 ml 50 ml Intake Oral 300 ml 800 ml 480 ml IV Total 384 ml 100 ml 200 ml 100 ml Output Urine Total 925 ml 400 ml 400 ml Chest Tube Drainage Total 280 ml 130 ml 130 ml # Bowel Movements 0 0 0 Physical Exam GENERAL: NAD, AAOx3 SKIN: Warm and dry. HEAD: Atraumatic. Normocephalic. EYES: Pupils equal and round. No scleral icterus. No injection or drainage. ENT: No nasal bleeding or discharge. Mucous membranes pink and moist. NECK: Trachea midline. No JVD. CARDIOVASCULAR: Regular rate and rhythm. Sternotomy covered, clean and dry RESPIRATORY: No accessory muscle use. Clear to auscultation. Breath sounds equal bilaterally. GASTROINTESTINAL: Abdomen soft, non-tender, nondistended. Hepatic and splenic margins not palpable. MUSCULOSKELETAL: Extremities without clubbing, cyanosis, or edema. No obvious deformities. NEUROLOGICAL: Awake and alert. No obvious cranial nerve deficits. Motor grossly within normal limits. Five out of 5 muscle strength in the arms and legs. Normal speech. PSYCHIATRIC: Appropriate mood and affect; insight and judgment normal. Laboratory Laboratory Tests Test 09/08/17 04:16 White Blood Count 11.8 TH/MM3 Red Blood Count 3.25 MIL/MM3 Hemoglobin 10.5 GM/DL Hematocrit 30.8 % Mean Corpuscular Volume 95.0 FL Mean Corpuscular Hemoglobin 32.4 PG Mean Corpuscular Hemoglobin Concent 34.1 % Red Cell Distribution Width 13.3 % Platelet Count 100 TH/MM3 Mean Platelet Volume 9.5 FL Neutrophils (%) (Auto) 71.1 % Lymphocytes (%) (Auto) 17.2 % Monocytes (%) (Auto) 10.7 % Eosinophils (%) (Auto) 0.9 % Basophils (%) (Auto) 0.1 % Neutrophils # (Auto) 8.4 TH/MM3 Lymphocytes # (Auto) 2.0 TH/MM3 Monocytes # (Auto) 1.3 TH/MM3 Eosinophils # (Auto) 0.1 TH/MM3 Basophils # (Auto) 0.0 TH/MM3 CBC Comment DIFF FINAL Differential Comment Blood Urea Nitrogen 21 MG/DL Creatinine 0.78 MG/DL Random Glucose 125 MG/DL Calcium Level 7.9 MG/DL Magnesium Level 2.8 MG/DL Sodium Level 135 MEQ/L Potassium Level 4.5 MEQ/L Chloride Level 101 MEQ/L Carbon Dioxide Level 28.4 MEQ/L Anion Gap 6 MEQ/L Estimat Glomerular Filtration Rate 102 ML/MIN Assessment and Plan Problem List: (1) CAD (coronary artery disease) ICD Codes: I25.10 - Atherosclerotic heart disease of [place] coronary artery without angina pectoris (2) Unstable angina ICD Codes: I20.0 - Unstable angina (3) NSTEMI (non-ST elevated myocardial infarction) ICD Codes: I21.4 - Non-ST elevation (NSTEMI) myocardial infarction Status: Acute (4) S/P CABG (coronary artery bypass graft) ICD Codes: Z95.1 - Presence of aortocoronary bypass graft Assessment and Plan 1) CAD/NSTEMI s/p CABGx3 POD #2 LANDON to LAD SVG to D1 SVG to OM1 2) Con't ASA/BB/Amio/Lipitor 3) Con't ambulation 4) Chest tubes still in, possible out later 5) Eventually back to [place] when stable Problem Qualifiers (1) CAD (coronary artery disease): Qualified Codes: I25.110 - Atherosclerotic heart disease of [place] coronary artery with unstable angina pectoris Gaurang Golden DO Sep 08, 2017 11:16
[2017-09-08] MEDS: METOPROLOL TARTRATE 25 MG TAB PO SCH ×2 (12:43→17:48)
[2017-09-08] MEDS: SODIUM CHLORIDE 0.9% FLUSH 10 ML FLUSH IV FLUSH PRN (12:44)
[2017-09-08] MEDS: KETOROLAC TROMETHAMINE 30 MG/ML (IVP) VIAL IV PUSH PRN ×2 (15:43→21:11)
[2017-09-08 16:43] LABS: HEMOGLOBIN A1C 5.7 % (4.3-6.0)
[2017-09-08] MEDS: SENNOSIDES 8.6 MG TAB PO SCH (21:10)
[2017-09-08] MEDS: ATORVASTATIN 40 MG TAB PO SCH (21:10)
[2017-09-09] VITALS (21 sets, daily range): BP systolic 108–130; BP diastolic 63–74; PULSE 70–96; RESP 16–18; TEMP 97.7–98.3; O2SAT 93–97
--- NOTE | 2017-09-09 05:47 | RADRPT ---
EXAM DATE/TIME: 09/09/2017 04:42 [facility] COMPARISON: CHEST SINGLE AP, September 07, 2017, 3:28. INDICATIONS : Status post chest tube removal. MEDICAL HISTORY : Hypercholesterolemia. Hypertension. SURGICAL HISTORY : CABG. ENCOUNTER: Subsequent ACUITY: 1 day PAIN SCORE: Non-responsive. LOCATION: chest FINDINGS: Left subclavian line is present with tip overlapping the expected region of the SVC. There is evidenc e for prior median sternotomy. Chest tube is present on the left side. No definite pneumothorax is se en for technique. The lungs are clear without infiltrate, nodule, or mass. There is no appreciable p leural effusion for technique. Heart and mediastinum are unremarkable. CONCLUSION: No acute cardiopulmonary disease. Sheri España MD on September 09, 2017 at 5:45 Board Certified Radiologist. This report was verified electronically.
[2017-09-09] MEDS: PANTOPRAZOLE SOD 40 MG DELAYED RELEASE TAB PO SCH (06:06)
[2017-09-09] MEDS: AMIODARONE 200 MG TAB PO SCH ×3 (06:06→20:43)
[2017-09-09] MEDS: KETOROLAC TROMETHAMINE 30 MG/ML (IVP) VIAL IV PUSH PRN (06:08)
[2017-09-09 06:13] LABS: CALCIUM 7.7 MG/DL (8.5-10.1); CREATININE 0.9 MG/DL (0.60-1.30)
[2017-09-09] MEDS: RESP: ALBUTEROL 2.5 MG/IPRATROPIUM 0.5 MG NEB (SCH) NEB ×2 (07:45→11:06)
[2017-09-09] MEDS: INSULIN ASPART SUPPLEMENTAL SCALE SQ SCH ×4 (08:00→20:44)
[2017-09-09] MEDS: TAMSULOSIN HCL 0.4 MG CAP PO SCH (08:51)
[2017-09-09] MEDS: DOCUSATE SODIUM 100 MG CAP PO SCH ×2 (08:51→20:43)
[2017-09-09] MEDS: POLYETHYLENE GLYCOL 17 GM PKG PO SCH (08:51)
[2017-09-09] MEDS: MAGNESIUM HYDROXIDE SUSP 30 ML CUP PO SCH (08:51)
[2017-09-09] MEDS: ASPIRIN 81 MG CHEW TAB PO SCH (08:51)
[2017-09-09] MEDS: MULTIVITAMINS/MINERALS THERAPEUTIC TAB PO SCH (08:52)
[2017-09-09] MEDS: METOPROLOL TARTRATE 25 MG TAB PO SCH ×2 (08:52→20:43)
[2017-09-09] MEDS: SODIUM CHLORIDE 0.9% FLUSH 10 ML FLUSH IV FLUSH SCH ×2 (08:52→20:43)
[2017-09-09] MEDS: amLODIPine BESYLATE 5 MG TAB PO SCH (08:52)
--- NOTE | 2017-09-09 12:09 | PD.CARD.PN ---
Subjective Subjective Remarks Doing well post surgery Up and ambulating Objective Medications Current Medications Medications (Trade) Dose Ordered Sig/Dejon Route Start Time Stop Time Status Last Admin (Tylenol) 650 mg Q4H PRN PO 09/04/17 20:00 (NS Flush) 2 ml BID IV FLUSH 09/06/17 21:00 09/09/17 08:52 (NS Flush) 2 ml UNSCH PRN IV FLUSH 09/06/17 14:15 09/08/17 12:44 Lactated Ringer's 500 ml @ 500 mls/hr Q1H PRN IV 09/06/17 14:09 (Aspirin Chew) 81 mg DAILY PO 09/07/17 09:00 09/09/17 08:51 (Protonix) 40 mg DAILY@06 PO 09/07/17 06:00 09/09/17 06:06 (Cordarone) 400 mg Q8HR PO 09/06/17 22:00 09/09/17 06:06 (Percocet 5-325 Mg) 1 tab Q3H PRN PO 09/06/17 14:15 09/08/17 09:23 (Zofran Inj) 4 mg Q6H PRN IV PUSH 09/06/17 14:15 09/08/17 17:45 (Apresoline Inj) 10 mg Q4H PRN IV PUSH 09/06/17 14:15 (Duoneb Neb) 1 ampule Q2HR NEB PRN NEB 09/06/17 14:15 (Duoneb Neb) 1 ampule Q6HR WHILE AWAKE NEB NEB 09/07/17 14:00 09/09/17 13:59 09/09/17 11:06 (Colace) 100 mg BID PO 09/07/17 21:00 09/09/17 08:51 (Theragran M Tab) 1 tab DAILY PO 09/07/17 09:30 09/09/17 08:52 (Milk Of Magnesia Liq) 30 ml DAILY PO 09/07/17 09:30 09/09/17 08:51 (Dulcolax Supp) 10 mg UNSCH PRN RECTAL 09/07/17 09:00 (Miralax) 17 gm DAILY PO 09/08/17 09:00 09/09/17 08:51 (Senokot) 8.6 mg HS PO 09/07/17 21:00 09/08/17 21:10 (Fleets Enema (Adult)) 118 ml UNSCH PRN RECTAL 09/07/17 09:00 (D50w (Vial) Inj) 50 ml UNSCH PRN IV PUSH 09/07/17 09:00 (Glucagon Inj) 1 mg UNSCH PRN OTHER 09/07/17 09:00 (Norvasc) 5 mg DAILY PO 09/07/17 11:00 09/09/17 08:52 (Flomax) 0.4 mg DAILY PO 09/07/17 09:30 09/09/17 08:51 (NovoLOG SUPPLEMENTAL SCALE) 1 ACHS SQ 09/08/17 12:00 09/08/17 21:12 (Percocet 5-325 Mg) 2 tab Q4H PRN PO 09/07/17 09:45 (Lipitor) 40 mg HS PO 09/07/17 21:00 09/08/17 21:10 (Lopressor) 50 mg BID PO 09/09/17 21:00 Vital Signs / I&O Vital Signs Date Time Temp Pulse Resp B/P (MAP) Pulse Ox O2 Delivery O2 Flow Rate FiO2 09/09/17 07:45 Nasal Cannula 09/09/17 07:08 20 09/09/17 07:00 98.2 86 18 129/71 (90) 97 09/09/17 06:43 90 127/67 (87) 95 09/09/17 06:00 95 09/09/17 05:04 98.2 85 16 130/73 (92) 97 09/09/17 05:00 86 09/09/17 04:00 80 09/09/17 03:19 94 Room Air 09/09/17 03:00 79 09/09/17 02:00 76 09/09/17 01:00 76 09/09/17 00:00 80 09/08/17 23:19 98.0 83 16 105/62 (76) 94 09/08/17 23:16 95 Room Air 09/08/17 23:00 80 09/08/17 22:00 78 09/08/17 21:54 92 Nasal Cannula 2.00 09/08/17 21:00 80 09/08/17 20:00 78 09/08/17 20:00 98.0 82 16 112/63 (79) 94 09/08/17 20:00 94 Room Air 09/08/17 19:00 84 09/08/17 18:00 84 09/08/17 17:00 96 09/08/17 16:00 78 09/08/17 15:50 93 Room Air 09/08/17 15:50 98.0 82 18 114/71 (85) 93 09/08/17 15:00 78 09/08/17 14:00 84 09/08/17 13:00 92 I/O 09/08/17 09/08/17 09/08/17 09/09/17 09/09/17 09/09/17 06:59 14:59 22:59 06:59 14:59 22:59 Intake Total 580 ml 1000 ml 960 ml Output Total 530 ml 1300 ml 975 ml Balance 50 ml -300 ml -15 ml Intake Oral 480 ml 1000 ml 960 ml IV Total 100 ml Output Urine Total 400 ml 1100 ml 975 ml Stool Total 0 ml Chest Tube Drainage Total 130 ml 200 ml # Bowel Movements 0 0 Physical Exam GENERAL: NAD, AAOx3 SKIN: Warm and dry. HEAD: Atraumatic. Normocephalic. EYES: Pupils equal and round. No scleral icterus. No injection or drainage. ENT: No nasal bleeding or discharge. Mucous membranes pink and moist. NECK: Trachea midline. No JVD. CARDIOVASCULAR: Regular rate and rhythm. Sternotomy covered, clean and dry RESPIRATORY: No accessory muscle use. Clear to auscultation. Breath sounds equal bilaterally. GASTROINTESTINAL: Abdomen soft, non-tender, nondistended. Hepatic and splenic margins not palpable. MUSCULOSKELETAL: Extremities without clubbing, cyanosis, or edema. No obvious deformities. NEUROLOGICAL: Awake and alert. No obvious cranial nerve deficits. Motor grossly within normal limits. Five out of 5 muscle strength in the arms and legs. Normal speech. PSYCHIATRIC: Appropriate mood and affect; insight and judgment normal. Laboratory Laboratory Tests Test 09/09/17 04:53 Blood Urea Nitrogen 25 MG/DL Creatinine 0.90 MG/DL Random Glucose 117 MG/DL Calcium Level 7.7 MG/DL Sodium Level 133 MEQ/L Potassium Level 4.1 MEQ/L Chloride Level 96 MEQ/L Carbon Dioxide Level 28.0 MEQ/L Anion Gap 9 MEQ/L Estimat Glomerular Filtration Rate 87 ML/MIN Imaging Last 24 hours Impressions Chest X-Ray 09/09/17 0600 Signed Impressions: Service Date/Time: Saturday, September 09, 2017 04:42 - CONCLUSION: No acute cardiopulmonary disease. Sheri España MD Assessment and Plan Problem List: (1) CAD (coronary artery disease) ICD Codes: I25.10 - Atherosclerotic heart disease of [place] coronary artery without angina pectoris (2) Unstable angina ICD Codes: I20.0 - Unstable angina (3) NSTEMI (non-ST elevated myocardial infarction) ICD Codes: I21.4 - Non-ST elevation (NSTEMI) myocardial infarction Status: Acute (4) S/P CABG (coronary artery bypass graft) ICD Codes: Z95.1 - Presence of aortocoronary bypass graft Assessment and Plan 1) CAD/NSTEMI s/p CABGx3 POD #3 LANDON to LAD SVG to D1 SVG to OM1 2) Con't ASA/BB/Amio/Lipitor 3) Con't ambulation 4) Eventually back to [place] when stable 5) Will see PRN, Dr. Calhoun will be covering over the weekend if any concerns Problem Qualifiers (1) CAD (coronary artery disease): Qualified Codes: I25.110 - Atherosclerotic heart disease of [place] coronary artery with unstable angina pectoris Gaurang Golden DO Sep 09, 2017 12:09
[2017-09-09] MEDS: oxyCODONE/ACETAMINOPHEN 5 MG/325 MG TAB PO PRN ×2 (14:16→23:09)
[2017-09-09] MEDS ORDERED: ATOR40TA16 PO (15:04)
[2017-09-09] MEDS ORDERED: OXYC1TAB63 PO (15:04)
[2017-09-09] MEDS ORDERED: METO25TA3 PO (15:04)
[2017-09-09] MEDS ORDERED: TAMS5CAP PO (15:04)
[2017-09-09] MEDS ORDERED: THERM PO (15:04)
[2017-09-09] MEDS ORDERED: AMIO200T PO (15:04)
[2017-09-09] MEDS ORDERED: DOCU1CAP39 PO (15:04)
--- NOTE | 2017-09-09 15:09 | HHI.DS ---
Discharge Summary Admission Date Sep 04, 2017 at 13:02 Discharge Date: Sep 10, 2017 Admitting Diagnosis NSTEMI (1) NSTEMI (non-ST elevated myocardial infarction) Diagnosis: Principal ICD Codes: I21.4 - Non-ST elevation (NSTEMI) myocardial infarction Status: Acute (2) CAD (coronary artery disease) Diagnosis: Principal ICD Codes: I25.10 - Atherosclerotic heart disease of [place] coronary artery without angina pectoris (3) Unstable angina Diagnosis: Principal ICD Codes: I20.0 - Unstable angina (4) S/P CABG (coronary artery bypass graft) Diagnosis: Secondary ICD Codes: Z95.1 - Presence of aortocoronary bypass graft Procedures Emergent CABG x 3 09/06 LANDON to LAD - good SVG to D1 - good SVG to OM1 - good EVH Brief History 57-year-old white male, admitted with NSTEMI. Patient was in his usual state of health until about 5 days ago when he began experiencing a gradual onset of diffuse bilateral chest pain that was aching in nature. Pain was intermittent and did not respond to Tylenol nor Advil. Patient says that during the day the pain would, and self resolve but oddly enough at night when he would lay down and would come back stronger. Due to the persistence of his symptoms he decided come to the emergency department. Denies any nausea vomiting or lightheadedness fevers or chills. He thinks his left foot is showing very trace edema. In the emergency department the patient's troponin was elevated at 2.5. I independently reviewed EKG and see very mild ST segment depression in V4 V5 and V6 with flipped minimal T waves in V2. Patient says after he was given the nitroglycerin his chest pain resolved. He is noted to be very hypertensive in the emergency department with systolics over 190 and diastolics over 100. PMH: hypertension, HLP carotid US: Moderate plaque around the carotid bifurcations bilaterally with findings most characteristic of carotid stenosis in the 50-60% range bilaterally / will need out pt follow up CBC/BMP: 09/08/17 0416 09/09/17 0453 Significant Findings Laboratory Tests Test 09/07/17 03:20 09/07/17 03:30 09/08/17 04:16 09/09/17 04:53 Random Glucose 121 MG/DL (74-106) 125 MG/DL (74-106) 117 MG/DL (74-106) Calcium Level 7.9 MG/DL (8.5-10.1) 7.9 MG/DL (8.5-10.1) 7.7 MG/DL (8.5-10.1) White Blood Count 16.9 TH/MM3 (4.0-11.0) 11.8 TH/MM3 (4.0-11.0) Red Blood Count 4.15 MIL/MM3 (4.50-5.90) 3.25 MIL/MM3 (4.50-5.90) Platelet Count 106 TH/MM3 (150-450) 100 TH/MM3 (150-450) Neutrophils (%) (Auto) 83.4 % (16.0-70.0) 71.1 % (16.0-70.0) Lymphocytes (%) (Auto) 7.5 % (9.0-44.0) Monocytes (%) (Auto) 9.0 % (0.0-8.0) 10.7 % (0.0-8.0) Neutrophils # (Auto) 14.1 TH/MM3 (1.8-7.7) 8.4 TH/MM3 (1.8-7.7) Monocytes # (Auto) 1.5 TH/MM3 (0-0.9) 1.3 TH/MM3 (0-0.9) Hemoglobin 10.5 GM/DL (13.0-17.0) Hematocrit 30.8 % (39.0-51.0) Blood Urea Nitrogen 21 MG/DL (7-18) 25 MG/DL (7-18) Magnesium Level 2.8 MG/DL (1.5-2.5) Sodium Level 135 MEQ/L (136-145) 133 MEQ/L (136-145) Chloride Level 96 MEQ/L (98-107) Estimat Glomerular Filtration Rate 87 ML/MIN (>89) Imaging Last Impressions Chest X-Ray 09/09/17 0600 Signed Impressions: Service Date/Time: Saturday, September 09, 2017 04:42 - CONCLUSION: No acute cardiopulmonary disease. Sheri España MD Lower Extremity Ultrasound 09/05/17 0000 Signed Impressions: Service Date/Time: Tuesday, September 05, 2017 16:18 - CONCLUSION: Venous mapping as above. Giovanni Johnson MD Carotid Artery Ultrasound 09/05/17 0000 Signed Impressions: Service Date/Time: Tuesday, September 05, 2017 15:28 - CONCLUSION: 1. Moderate plaque around the carotid bifurcations bilaterally with findings most characteristic of carotid stenosis in the 50-60%% range bilaterally. Phil Martin MD PE at Discharge GENERAL: A&O x 3 SKIN: Warm and dry. prevena dressing to chest , incision intact left leg HEAD: Normocephalic. EYES: No scleral icterus. No injection or drainage. NECK: Supple, trachea midline. No JVD or lymphadenopathy. CARDIOVASCULAR: Regular rate and rhythm without murmurs, gallops, or rubs. RESPIRATORY: Breath sounds equal bilaterally. No accessory muscle use. GASTROINTESTINAL: Abdomen soft, non-tender, nondistended. MUSCULOSKELETAL: No cyanosis, or edema. BACK: Nontender without obvious deformity. No CVA tenderness. Hospital Course 09/06 pt developed chest pain 10/10 this am , and was emergently taken to OR surgery: Emergent CABG x 3, LANDON to LAD - good, SVG to D1 - good, SVG to OM1 - good, L EVH crystalloid 3500cc, cell saver 750cc, 1500cc EBL 09/07 up in chair, on nasal cannula weaned off cleviprex, started on BB , and norvasc on amiodarone , statin , ASA family requesting pt to travel back to [place] via air ambulance once cleared by our service 09/08 remains in NSR occ PAC rate 96/ will increase BB / continue amiodarone gentle diuresis re-eval later today to remove chest tube/ drained 130cc/ last night and 100cc this am 09/09 chest drained <70cc/ 12 hrs removed without difficulty on room air + BM eval for transfer back to [place] via air ambulance over the weekend discussed with Pt Condition on Discharge: Good Discharge Disposition: Disch to Another Hospital Discharge Instructions DIET: Follow Instructions for: Heart Healthy Diet Activities you can perform: Full Weight Bearing, Shower Only-No Bath Activities to avoid: Strenuous Activity, Driving Additional Activity Instructio: no lifting > 8lbs or gallon of milk New Medications: Amiodarone (Amiodarone) 200 Mg Tab 200 MG PO Q12HR for heart rhythm, #28 TAB 0 Refills for 14 days only Atorvastatin (Atorvastatin) 40 Mg Tab 40 MG PO HS for Cholesterol Management, #30 TAB 0 Refills Docusate Sodium (Dok) 100 Mg Cap 100 MG PO BID for Constipation, #60 CAP 0 Refills Metoprolol Tartrate (Metoprolol Tartrate) 25 Mg Tab 50 MG PO BID for Blood Pressure Management, #60 TAB 0 Refills Multiple Vitamins W/ Minerals (Thera M Plus) 1 Tab 1 TAB PO DAILY for multi vitamin, #30 TAB 0 Refills Oxycodone HCl/Acetaminophen (Oxycodone-Acetaminophen 5-325) 5 Mg-325 Mg Tablet 1 TAB PO Q4HR PRN for PAIN SCALE 1 TO 5, #30 TAB 0 Refills Tamsulosin (Flomax) 0.4 Mg Cap 0.4 MG PO DAILY for urinary retention, #30 CAP 2 Refills Continued Medications: Amlodipine (Norvasc) 5 Mg Tab 5 MG PO DAILY for Blood Pressure Management, #30 TAB 0 Refills Aspirin (Aspirin) 81 Mg Chew 81 MG CHEW DAILY, TAB 0 Refills Discontinued Medications: [Cholesterol Med] () Johana Hoffman Sep 09, 2017 15:09
--- NOTE | 2017-09-09 15:12 | PD.CAR.PN ---
CVT Progress Note Subjective/Hospital Course: 57-year-old white male, admitted with NSTEMI. Patient was in his usual state of health until about 5 days ago when he began experiencing a gradual onset of diffuse bilateral chest pain that was aching in nature. Pain was intermittent and did not respond to Tylenol nor Advil. Patient says that during the day the pain would, and self resolve but oddly enough at night when he would lay down and would come back stronger. Due to the persistence of his symptoms he decided come to the emergency department. Denies any nausea vomiting or lightheadedness fevers or chills. He thinks his left foot is showing very trace edema. In the emergency department the patient's troponin was elevated at 2.5. I independently reviewed EKG and see very mild ST segment depression in V4 V5 and V6 with flipped minimal T waves in V2. Patient says after he was given the nitroglycerin his chest pain resolved. He is noted to be very hypertensive in the emergency department with systolics over 190 and diastolics over 100. PMH: hypertension, HLP carotid US: Moderate plaque around the carotid bifurcations bilaterally with findings most characteristic of carotid stenosis in the 50-60% range bilaterally / will need out pt follow up 09/06 pt developed chest pain 05/03 this am , and was emergently taken to OR surgery: Emergent CABG x 3, LANDON to LAD - good, SVG to D1 - good, SVG to OM1 - good, L EVH crystalloid 3500cc, cell saver 750cc, 1500cc EBL 09/07 up in chair, on nasal cannula weaned off cleviprex, started on BB , and norvasc on amiodarone , statin , ASA family requesting pt to travel back to [place] via air ambulance once cleared by our service 09/08 remains in NSR occ PAC rate 96/ will increase BB / continue amiodarone gentle diuresis re-eval later today to remove chest tube/ drained 130cc/ last night and 100cc this am 09/09 chest tube removed without difficulty on room air recheck cxr in am eval for transfer to [place] via air ambulance Objective: Vital Signs Date Time Temp Pulse Resp B/P (MAP) Pulse Ox O2 Delivery O2 Flow Rate FiO2 09/09/17 07:45 Nasal Cannula 09/09/17 07:08 20 09/09/17 07:00 98.2 86 18 129/71 (90) 97 09/09/17 06:43 90 127/67 (87) 95 09/09/17 06:00 95 09/09/17 05:04 98.2 85 16 130/73 (92) 97 09/09/17 05:00 86 09/09/17 04:00 80 09/09/17 03:19 94 Room Air 09/09/17 03:00 79 09/09/17 02:00 76 09/09/17 01:00 76 09/09/17 00:00 80 09/08/17 23:19 98.0 83 16 105/62 (76) 94 09/08/17 23:16 95 Room Air 09/08/17 23:00 80 09/08/17 22:00 78 09/08/17 21:54 92 Nasal Cannula 2.00 09/08/17 21:00 80 09/08/17 20:00 78 09/08/17 20:00 98.0 82 16 112/63 (79) 94 09/08/17 20:00 94 Room Air 09/08/17 19:00 84 09/08/17 18:00 84 09/08/17 17:00 96 09/08/17 16:00 78 09/08/17 15:50 93 Room Air 09/08/17 15:50 98.0 82 18 114/71 (85) 93 Labs: Laboratory Tests Test 09/09/17 04:53 Blood Urea Nitrogen 25 MG/DL (7-18) Creatinine 0.90 MG/DL (0.60-1.30) Random Glucose 117 MG/DL (74-106) Calcium Level 7.7 MG/DL (8.5-10.1) Sodium Level 133 MEQ/L (136-145) Potassium Level 4.1 MEQ/L (3.5-5.1) Chloride Level 96 MEQ/L (98-107) Carbon Dioxide Level 28.0 MEQ/L (21.0-32.0) Anion Gap 9 MEQ/L (5-15) Estimat Glomerular Filtration Rate 87 ML/MIN (>89) Result Diagram: 09/08/17 0416 09/09/17 0453 (1) CAD (coronary artery disease) (2) Unstable angina (3) NSTEMI (non-ST elevated myocardial infarction) (4) S/P CABG (coronary artery bypass graft) Plan: ASA, statin increase BB , amiodarone gentle diuresis pulm toileting / on room air OOB, ambulate CM to eval for transfer back to [place]/ once accepting hospital and MD and cleared by our service Problem Qualifiers (1) CAD (coronary artery disease): Qualified Codes: I25.110 - Atherosclerotic heart disease of [place] coronary artery with unstable angina pectoris Johana Hoffman Sep 09, 2017 15:12
[2017-09-09] MEDS ORDERED: LORazepam 2 MG/ML VIAL IV PUSH PRN (16:15)
[2017-09-09] MEDS: ATORVASTATIN 40 MG TAB PO SCH (20:43)
[2017-09-09] MEDS: SENNOSIDES 8.6 MG TAB PO SCH (20:43)
[2017-09-10] VITALS (31 sets, daily range): BP systolic 116–129; BP diastolic 67–77; PULSE 63–90; RESP 16–18; TEMP 97.4–98.4; O2SAT 94–96
--- NOTE | 2017-09-10 04:42 | RADRPT ---
EXAM DATE/TIME: 09/10/2017 04:15 [facility] COMPARISON: CHEST SINGLE AP, September 09, 2017, 4:42. INDICATIONS : Shortness of breath, possible pulmonary disease. MEDICAL HISTORY : Hypertension. Hypercholesterolemia. SURGICAL HISTORY : CABG. ENCOUNTER: Subsequent ACUITY: 1 week PAIN SCORE: 0/10 LOCATION: Bilateral chest FINDINGS: There is mild perivascular haziness may represent pulmonary edema. There is evidence for prior median sternotomy. heart and mediastinum have not changed. CONCLUSION: Possible mild case of pulmonary edema. Sheri España MD on September 10, 2017 at 4:40 Board Certified Radiologist. This report was verified electronically.
[2017-09-10] MEDS: PANTOPRAZOLE SOD 40 MG DELAYED RELEASE TAB PO SCH (06:02)
[2017-09-10] MEDS: AMIODARONE 200 MG TAB PO SCH ×3 (06:03→22:09)
[2017-09-10] MEDS: INSULIN ASPART SUPPLEMENTAL SCALE SQ SCH ×4 (08:00→22:29)
[2017-09-10] MEDS: amLODIPine BESYLATE 5 MG TAB PO SCH (08:48)
[2017-09-10] MEDS: ASPIRIN 81 MG CHEW TAB PO SCH (08:48)
[2017-09-10] MEDS: TAMSULOSIN HCL 0.4 MG CAP PO SCH (08:49)
[2017-09-10] MEDS: SODIUM CHLORIDE 0.9% FLUSH 10 ML FLUSH IV FLUSH SCH ×2 (08:49→22:27)
[2017-09-10] MEDS: DOCUSATE SODIUM 100 MG CAP PO SCH ×2 (08:49→21:00)
[2017-09-10] MEDS: METOPROLOL TARTRATE 25 MG TAB PO SCH ×2 (08:49→22:09)
[2017-09-10] MEDS: MULTIVITAMINS/MINERALS THERAPEUTIC TAB PO SCH (08:49)
[2017-09-10] MEDS: MAGNESIUM HYDROXIDE SUSP 30 ML CUP PO SCH (08:50)
[2017-09-10] MEDS: POLYETHYLENE GLYCOL 17 GM PKG PO SCH (08:50)
[2017-09-10] MEDS: oxyCODONE/ACETAMINOPHEN 5 MG/325 MG TAB PO PRN ×2 (12:37→22:07)
[2017-09-10] MEDS: SENNOSIDES 8.6 MG TAB PO SCH (21:00)
[2017-09-10] MEDS: ATORVASTATIN 40 MG TAB PO SCH (22:28)
[2017-09-11] VITALS (19 sets, daily range): BP systolic 112–122; BP diastolic 64–76; PULSE 66–90; RESP 16–18; TEMP 97.5–98.4; O2SAT 96–97
[2017-09-11] MEDS ORDERED: diphenhydrAMINE HCL 50 MG CAP PO PRN (00:45)
[2017-09-11] MEDS ORDERED: diphenhydrAMINE HCL 50 MG CAP PO ONE (00:45)
[2017-09-11] MEDS: AMIODARONE 200 MG TAB PO SCH ×2 (05:38→14:30)
[2017-09-11] MEDS: PANTOPRAZOLE SOD 40 MG DELAYED RELEASE TAB PO SCH (05:38)
[2017-09-11] MEDS: INSULIN ASPART SUPPLEMENTAL SCALE SQ SCH ×2 (07:53→12:31)
[2017-09-11] MEDS: METOPROLOL TARTRATE 25 MG TAB PO SCH (08:50)
[2017-09-11] MEDS: TAMSULOSIN HCL 0.4 MG CAP PO SCH (08:50)
[2017-09-11] MEDS: DOCUSATE SODIUM 100 MG CAP PO SCH (08:50)
[2017-09-11] MEDS: MULTIVITAMINS/MINERALS THERAPEUTIC TAB PO SCH (08:50)
[2017-09-11] MEDS: amLODIPine BESYLATE 5 MG TAB PO SCH (08:50)
[2017-09-11] MEDS: MAGNESIUM HYDROXIDE SUSP 30 ML CUP PO SCH (08:51)
[2017-09-11] MEDS: SODIUM CHLORIDE 0.9% FLUSH 10 ML FLUSH IV FLUSH SCH (08:51)
[2017-09-11] MEDS: ASPIRIN 81 MG CHEW TAB PO SCH (08:51)
[2017-09-11] MEDS: POLYETHYLENE GLYCOL 17 GM PKG PO SCH (08:51)
--- NOTE | 2017-09-11 11:02 | PD.CAR.PN ---
CVT Progress Note CVT: POD #: 5 Subjective/Hospital Course: 57-year-old white male, admitted with NSTEMI. Patient was in his usual state of health until about 5 days ago when he began experiencing a gradual onset of diffuse bilateral chest pain that was aching in nature. Pain was intermittent and did not respond to Tylenol nor Advil. Patient says that during the day the pain would, and self resolve but oddly enough at night when he would lay down and would come back stronger. Due to the persistence of his symptoms he decided come to the emergency department. Denies any nausea vomiting or lightheadedness fevers or chills. He thinks his left foot is showing very trace edema. In the emergency department the patient's troponin was elevated at 2.5. I independently reviewed EKG and see very mild ST segment depression in V4 V5 and V6 with flipped minimal T waves in V2. Patient says after he was given the nitroglycerin his chest pain resolved. He is noted to be very hypertensive in the emergency department with systolics over 190 and diastolics over 100. PMH: hypertension, HLP carotid US: Moderate plaque around the carotid bifurcations bilaterally with findings most characteristic of carotid stenosis in the 50-60% range bilaterally / will need out pt follow up 09/06 pt developed chest pain 05/03 this am , and was emergently taken to OR surgery: Emergent CABG x 3, LANDON to LAD - good, SVG to D1 - good, SVG to OM1 - good, L EVH crystalloid 3500cc, cell saver 750cc, 1500cc EBL 09/07 up in chair, on nasal cannula weaned off cleviprex, started on BB , and norvasc on amiodarone , statin , ASA family requesting pt to travel back to [place] via air ambulance once cleared by our service 09/08 remains in NSR occ PAC rate 96/ will increase BB / continue amiodarone gentle diuresis re-eval later today to remove chest tube/ drained 130cc/ last night and 100cc this am 09/09 chest tube removed without difficulty on room air recheck cxr in am eval for transfer to [place] via air ambulance 09/11/17 Discharge delayed by [facility] insurance regarding inpatient transfer. He will be discharged today to remain local. I will see him ion the office on with a CXR. Objective: Vital Signs Date Time Temp Pulse Resp B/P (MAP) Pulse Ox O2 Delivery O2 Flow Rate FiO2 09/11/17 10:00 66 09/11/17 09:00 72 09/11/17 08:00 79 09/11/17 07:38 96 Room Air 09/11/17 07:37 98.4 79 16 122/76 (91) 96 09/11/17 07:00 75 09/11/17 06:00 73 09/11/17 05:49 98.3 72 18 120/76 (91) 97 09/11/17 05:00 74 09/11/17 04:00 66 09/11/17 03:00 68 09/11/17 03:00 94 Room Air 09/11/17 02:00 70 09/11/17 01:00 74 09/11/17 00:00 68 09/10/17 23:00 98.4 83 18 122/77 (92) 94 09/10/17 23:00 96 Room Air 09/10/17 23:00 71 09/10/17 22:00 78 09/10/17 21:00 78 09/10/17 20:40 95 Room Air 09/10/17 20:37 98.4 82 18 119/70 (86) 95 09/10/17 20:17 95 09/10/17 20:00 80 09/10/17 19:00 76 09/10/17 18:00 82 09/10/17 17:00 78 09/10/17 16:00 75 09/10/17 15:11 95 Room Air 09/10/17 15:11 98.1 79 18 116/69 (85) 95 09/10/17 15:00 85 09/10/17 14:00 76 09/10/17 13:00 75 09/10/17 12:00 72 09/10/17 11:33 94 Room Air 09/10/17 11:32 98.0 63 18 120/71 (87) 94 09/10/17 11:00 70 Result Diagram: 09/08/17 0416 09/09/17 0453 Imaging: Last Impressions Chest X-Ray 09/10/17 0600 Signed Impressions: Service Date/Time: Sunday, September 10, 2017 04:15 - CONCLUSION: Possible mild case of pulmonary edema. Sheri España MD Lower Extremity Ultrasound 09/05/17 0000 Signed Impressions: Service Date/Time: Tuesday, September 05, 2017 16:18 - CONCLUSION: Venous mapping as above. Giovanni Johnson MD Carotid Artery Ultrasound 09/05/17 0000 Signed Impressions: Service Date/Time: Tuesday, September 05, 2017 15:28 - CONCLUSION: 1. Moderate plaque around the carotid bifurcations bilaterally with findings most characteristic of carotid stenosis in the 50-60%% range bilaterally. Phil Martin MD Cardiovascular: RRR Telemetry: NSR Pulmonary: CTA GI/: NABS, NT Incision: dry and intact Plan: CXR on Tuesday or with follow-up appt on . He will plan to travel back to [place] at the end of the week. (1) CAD (coronary artery disease) (2) Unstable angina (3) NSTEMI (non-ST elevated myocardial infarction) (4) S/P CABG (coronary artery bypass graft) Plan: ASA, statin increase BB , amiodarone gentle diuresis pulm toileting / on room air OOB, ambulate CM to eval for transfer back to [place]/ once accepting hospital and MD and cleared by our service Problem Qualifiers (1) CAD (coronary artery disease): Qualified Codes: I25.110 - Atherosclerotic heart disease of [place] coronary artery with unstable angina pectoris Yue Gilliland MD Sep 11, 2017 11:02
== END 2017-09-11 15:55 | disposition home or self-care (01) | DRG 234 ==
LOC: PHED 11:21 → PHEDA 13:02 → HCIS 15:55 → HCVI 09-05 19:12 → HCPC 09-07 09:51
PROVIDERS: ADMIT Thoracic Surgery (Cardiothoracic Vascular Surgery); ATTEND Thoracic Surgery (Cardiothoracic Vascular Surgery)
PROC: 4A023N7 Measurement of Cardiac Sampling and Pressure, Left Heart, Percutaneous Approach (ICD-10-PCS; 2017-09-04)
PROC: B2111ZZ Fluoroscopy of Multiple Coronary Arteries using Low Osmolar Contrast (ICD-10-PCS; 2017-09-04)
PROC: 021109W Bypass Coronary Artery, Two Arteries from Aorta with Autologous Venous Tissue, Open Approach (ICD-10-PCS; 2017-09-06)
PROC: 06BQ4ZZ Excision of Left Saphenous Vein, Percutaneous Endoscopic Approach (ICD-10-PCS; 2017-09-06)
PROC: 5A1221Z Performance of Cardiac Output, Continuous (ICD-10-PCS; 2017-09-06)
PROC: B246ZZ4 Ultrasonography of Right and Left Heart, Transesophageal (ICD-10-PCS; 2017-09-06)
PROC: 02100Z9 Bypass Coronary Artery, One Artery from Left Internal Mammary, Open Approach (ICD-10-PCS; principal; 2017-09-06 10:34)
DX: I21.4 Non-ST elevation (NSTEMI) myocardial infarction (principal); I65.23 Occlusion and stenosis of bilateral carotid arteries; I10 Essential (primary) hypertension; I16.1 Hypertensive emergency; E78.5 Hyperlipidemia, unspecified; M79.629 Pain in unspecified upper arm; F17.210 Nicotine dependence, cigarettes, uncomplicated; I25.110 Atherosclerotic heart disease of native coronary artery with unstable angina pectoris; Z82.49 Family history of ischemic heart disease and other diseases of the circulatory system; Z82.3 Family history of stroke; Z79.82 Long term (current) use of aspirin
CPT/HCPCS: 36430; 71045; 76937; 80048; 80053; 80061; 81001; 82550; 82552; 82948; 83036; 83735; 84484; 85025; 85610; 85730; 86850; 86900; 86901; 86920; 87641; 93005; 93306; 93318; 93458; 93880; 93970; 93998; 94003; 94010; 94150; 94640; 94664; 94667; 94668; 99152; 99153; 99285; C1769; C1893; C9248; J0131; J0330; J0360; J0690; J1644; J1815; J1817; J1885; J1940; J2060; J2150; J2250; J2270; J2370; J2405; J2440; J2720; J2930; J3010; J3370; J3475; J3480; J7040; J7050; J7120; P9016; P9047; Q0163; Q9967